=== PATIENT | female | born 1930 | race Caucasian/White ===

== ENCOUNTER 2016-05-31 16:09 | Inpatient (IN) | payer OTHER, MEDICARE ==
[~2016-05-31] VITALS: Ht 167.6 cm; Wt 72.3 kg
[2016-05-31] VITALS (7 sets, daily range): BP systolic 115–163; BP diastolic 60–95; PULSE 61–74; RESP 16; TEMP 96.9–97.6; O2SAT 96–99
[~2016-05-31 16:09] MED LIST: ASPI81TA82 PO; ATOR20TA42 PO; FURO1TAB93 PO; LEVO50TA48 PO; NITR-29 PO; OMEP40CA2 PO; POTA10SO13 PO; TAZT360C2 PO
[2016-05-31] MEDS ORDERED: MORPHINE SULFATE 4 MG/ML INJ IV PUSH ONE (16:45)
--- NOTE | 2016-05-31 16:49 | PD ---
HPI Chief Complaint: Fall Time Seen by Provider: 16:24 Travel History International Travel<30 days: No Contact w/Intl Traveler<30days: No Traveled to known affect area: No History of Present Illness HPI Patient is an 86-year-old female who presents to emergency room with complaints of left-sided hip pain. Patient reports that she was waiting for her bus to arrive and holding onto the rails when all of a sudden she lost her balance and fell. Patient reports that she fell landing onto her left hip. Denies trauma to head/neck. Denies loc. Reports that she was unable to get up and walk after her fall as bystanders had to assist her. Patient reports that the only anticoagulant that she takes is a baby aspirin. Patient denies any chest pain or shortness of breath. Patient denies abdominal pain. Patient denies pelvic pain. Patient reports only pain to her left hip. PFSH Past Medical History Anemia: Yes Arthritis: Yes Asthma: No Atrial Fibrillation: Yes (H/O? Pt unsure of dx.) Autoimmune Disease: No Anxiety: No Depression: No Heart Rhythm Problems: No Cancer: No Cardiovascular Problems: Yes High Cholesterol: No Chemotherapy: No Chest Pain: No Congestive Heart Failure: No COPD: No Cerebrovascular Accident: Yes (TIA) Diabetes: No Diminished Hearing: No Endocrine: Yes (Hypothyroid ) Gastrointestinal Disorders: Yes (TUMOR REMOVED FROM COLON) GERD: Yes Genitourinary: No Headaches: Yes Hiatal Hernia: Yes Hypertension: Yes Immune Disorder: No Inguinal Hernia: Yes (Pt unsure of dx) Kidney Stones: No Musculoskeletal: Yes (Chronic back pain) Neurologic: No Psychiatric: No Reproductive: No Respiratory: No Immunizations Current: Yes Migraines: No Radiation Therapy: No Renal Failure: No Seizures: No Sickle Cell Disease: No Sleep Apnea: No Thyroid Disease: Yes (Hypothyroid) Ulcer: No ?: Not : 2 Para: 2 Past Surgical History Abdominal Surgery: Yes (Colon resection ) AICD: No Arteriovenous Shunt: No Cardiac Surgery: No Cholecystectomy: Yes Ear Surgery: No Endocrine Surgery: No Eye Surgery: Yes (Cataract removal right eye) Genitourinary Surgery: No Gynecologic Surgery: Yes Hysterectomy: Yes (Partial) Insulin Pump: No Joint Replacement: No Oral Surgery: No Pacemaker: No Thoracic Surgery: No Tonsillectomy: Yes Other Surgery: Yes (TONSILECTOMY) Family History Family History: Negative Social History Alcohol Use: Yes (Rarely) Tobacco Use: No Substance Use: No Allergies-Medications (Allergen,Severity, Reaction): Coded Allergies: Penicillin (Verified Allergy, Severe, Anaphylaxis, 05/31/16) Sulfa (Verified Allergy, Severe, Anaphylaxis, 05/31/16) Reported Meds & Prescriptions Reported Meds & Active Scripts Active Reported Taztia Xt (Diltiazem ER 24 HR) 180 Mg Caper 360 Mg PO DAILY Furosemide 40 Mg Tab 40 Mg PO DAILY K-Tab (Potassium Chloride) 20 Meq Tab 40 Meq PO DAILY Aspirin 81 Mg Tabdr 81 Mg PO DAILY Omeprazole 40 Mg Cap 40 Mg PO DAILY Levothyroxine (Levothyroxine Sodium) 50 Mcg Tab 50 Mcg PO DAILY Review of Systems General / Constitutional: No: Fever Eyes: No: Visual changes HENT: No: Headaches Cardiovascular: No: Chest Pain or Discomfort Respiratory: No: Shortness of Breath Gastrointestinal: No: Abdominal Pain Genitourinary: No: Dysuria Musculoskeletal: Positive: Pain (left sided hip pain) Skin: No Rash Neurologic: No: Weakness Psychiatric: No: Depression Endocrine: No: Polydipsia Hematologic/Lymphatic: No: Easy Bruising Physical Exam Narrative GENERAL: nad, nontoxic SKIN: Warm and dry. HEAD: Atraumatic. Normocephalic. EYES: Pupils equal and round. No scleral icterus. No injection or drainage. ENT: No nasal bleeding or discharge. Mucous membranes pink and moist. NECK: Trachea midline. No JVD. CARDIOVASCULAR: Regular rate and rhythm. No murmur appreciated. RESPIRATORY: No accessory muscle use. Clear to auscultation. Breath sounds equal bilaterally. GASTROINTESTINAL: Abdomen soft, non-tender, nondistended. Hepatic and splenic margins not palpable. MUSCULOSKELETAL: No obvious deformities. No clubbing. No cyanosis. No edema. Patient with pain with ROM to left hip, no obvious fx, no open fx, patient with abrasions to left lateral hip, normal rom to left knee and ankle, RLE: normal exam NEUROLOGICAL: Awake and alert. No obvious cranial nerve deficits. Motor grossly within normal limits. Normal speech. PSYCHIATRIC: Appropriate mood and affect; insight and judgment normal. Data Data Last Documented VS Vital Signs Date Time Temp Pulse Resp B/P Pulse Ox O2 Delivery O2 Flow Rate FiO2 05/31/16 17:55 61 16 155/69 98 05/31/16 16:11 97.6 Orders Complete Blood Count With Diff (05/31/16 16:36) Comprehensive Metabolic Panel (05/31/16 16:36) Prothrombin Time / Inr (Pt) (05/31/16 16:36) Act Partial Throm Time (Ptt) (05/31/16 16:36) Iv Access Insert/Monitor (05/31/16 16:36) Morphine Inj (Morphine Inj) (05/31/16 16:45) Hip, Uni(Ap&Lat) W Ap Pelvis (05/31/16 ) Ondansetron Inj (Zofran Inj) (05/31/16 17:00) Ondansetron Inj (Zofran Inj) (05/31/16 18:00) Electrocardiogram (05/31/16 ) Labs Laboratory Tests Test 05/31/16 16:40 White Blood Count 7.1 TH/MM3 Red Blood Count 4.34 MIL/MM3 Hemoglobin 12.7 GM/DL Hematocrit 37.4 % Mean Corpuscular Volume 86.1 FL Mean Corpuscular Hemoglobin 29.2 PG Mean Corpuscular Hemoglobin 34.0 % Concent Red Cell Distribution Width 13.4 % Platelet Count 255 TH/MM3 Mean Platelet Volume 8.3 FL Neutrophils (%) (Auto) 64.9 % Lymphocytes (%) (Auto) 24.3 % Monocytes (%) (Auto) 8.5 % Eosinophils (%) (Auto) 1.5 % Basophils (%) (Auto) 0.8 % Neutrophils # (Auto) 4.6 TH/MM3 Lymphocytes # (Auto) 1.7 TH/MM3 Monocytes # (Auto) 0.6 TH/MM3 Eosinophils # (Auto) 0.1 TH/MM3 Basophils # (Auto) 0.1 TH/MM3 CBC Comment DIFF FINAL Differential Comment Prothrombin Time 11.4 SEC Prothromb Time International 1.0 RATIO Ratio Activated Partial 25.6 SEC Thromboplast Time Sodium Level 143 MEQ/L Potassium Level 3.4 MEQ/L Chloride Level 105 MEQ/L Carbon Dioxide Level 28.0 MEQ/L Anion Gap 10 MEQ/L Blood Urea Nitrogen 23 MG/DL Creatinine 1.40 MG/DL Estimat Glomerular Filtration 35 ML/MIN Rate Random Glucose 148 MG/DL Calcium Level 8.3 MG/DL Total Bilirubin 0.4 MG/DL Aspartate Amino Transf 22 U/L (AST/SGOT) Alanine Aminotransferase 20 U/L (ALT/SGPT) Alkaline Phosphatase 83 U/L Total Protein 7.7 GM/DL Albumin 3.8 GM/DL MDM Medical Decision Making Medical Screen Exam Complete: Yes Emergency Medical Condition: Yes Interpretation(s) Vital Signs Date Time Temp Pulse Resp B/P Pulse Ox O2 Delivery O2 Flow Rate FiO2 05/31/16 16:11 97.6 66 16 136/95 99 Differential Diagnosis Hip fracture, pelvic fracture Narrative Course Patient is an 86 year-old female who presents to emergency room with complaints of left-sided hip pain. Patient reports that she was standing by a rail when she lost balance and ended up falling onto her left hip. Patient with no trauma to the head or neck. Patient with no loss of consciousness. Patient reports pain with range of motion to left hip. Patient reports concern for possible fracture to left hip. X-ray of hip ordered for evaluation of possible fracture Patient with comminuted intratrochanteric fracture of the left proximal femur, call made to [facility] for admission, call made to ortho to review fx pt will need to be transferred to [facility] for ortho surgery case reviewed with Dr Garcia with ortho, request that patient be kept NPO after midnight Physician Communication Physician Communication case reviewed with dr mejia who accepts pt to service Diagnosis Primary Impression: Intertrochanteric fracture of left hip Qualified Code: S72.142A - Intertrochanteric fracture of left hip, closed, initial encounter Admitting Information Admitting Physician Requests: Admit Eneida Paz DO May 31, 2016 16:49
[2016-05-31] MEDS ORDERED: ONDANSETRON HCL 4 MG/2 ML VIAL IV PUSH ONE ×2 (17:00→18:00)
[2016-05-31 17:01] LABS: AUTOMATED NEUTROPHIL # 4.6 TH/MM3 (1.8-7.7); BASOPHIL # 0.1 TH/MM3 (0-0.2); BASOPHIL % 0.8 % (0.0-2.0); EOSINOPHIL # 0.1 TH/MM3 (0-0.4); EOSINOPHIL % 1.5 % (0.0-4.0); HEMATOCRIT 37.4 % (35.0-46.0); HEMO FLAGS DIFF FINAL; LYMPH % 24.3 % (9.0-44.0); LYMPHOCYTE # 1.7 TH/MM3 (1.0-4.8); MEAN CELL VOLUME 86.1 FL (80.0-100.0); MEAN CORPUSCULAR HEMOGLOBIN 29.2 PG (27.0-34.0); MONO % 8.5 % (0.0-8.0); NEUT % 64.9 % (16.0-70.0); PLATELET COUNT 255 TH/MM3 (150-450); RED BLOOD COUNT 4.34 MIL/MM3 (4.00-5.30); RED CELL DISTRIBUTION WIDTH 13.4 % (11.6-17.2); WHITE BLOOD COUNT 7.1 TH/MM3 (4.0-11.0)
[2016-05-31 17:06] LABS: CHLORIDE 105 MEQ/L (98-107); POTASSIUM 3.4 MEQ/L (3.5-5.1); SODIUM (NA) 143 MEQ/L (136-145)
[2016-05-31 17:10] LABS: ANION GAP 10 MEQ/L (5-15); BLOOD UREA NITROGEN 23 MG/DL (7-18)
[2016-05-31 17:13] LABS: ALT (GPT) 20 U/L (10-53); APTT (PATIENT) 25.6 SEC (24.3-30.1); AST (GOT) 22 U/L (15-37); GLOMERULAR FILTRATION RATE 35 ML/MIN (>89); PROTHROMBIN TIME - PATIENT 11.4 SEC (9.8-11.6)
[2016-05-31 17:15] LABS: TOTAL BILIRUBIN ADULT 0.4 MG/DL (0.2-1.0)
[2016-05-31 17:16] LABS: ALKALINE PHOSPHATASE 83 U/L (45-117)
[2016-05-31] MEDS ORDERED: LEVO50TA4 PO (17:36)
[2016-05-31] MEDS ORDERED: OMEP40CA2 PO (17:36)
[2016-05-31] MEDS ORDERED: ASPI1TAB69 PO (17:37)
[2016-05-31] MEDS ORDERED: POTA1TAB4 PO (17:41)
[2016-05-31] MEDS ORDERED: FURO40TA PO (17:41)
[2016-05-31] MEDS ORDERED: TAZT180C PO (17:42)
--- NOTE | 2016-05-31 18:11 | RADHPO ---
EXAM DATE/TIME: 05/31/2016 17:10 [facility] COMPARISON: No previous studies available for comparison. INDICATIONS : Left hip pain post fall. MEDICAL HISTORY : Hypertension. Hypothyroidism. Osteoarthritis. TIA, AFIB, GERD, Gall bladder disease, Arthritis, S ciatica pain, Anemia SURGICAL HISTORY : Tonsillectomy. Colon resection. Cholecystectomy. Hysterectomy ENCOUNTER: Initial ACUITY: 1 day PAIN SCORE: 9/10 LOCATION: Left pelvis FINDINGS: 4 views of the left hip and pelvis. Comminuted intertrochanteric fracture of the proximal left femur. Small bilateral hip osteophytes. Mild bilateral hip joint narrowing. No evidence of dislocation. CONCLUSION: Comminuted intertrochanteric proximal left femur fracture with 2.5 cm displacement of the lesser troc hanter fragment. Mild osteoarthritic findings of the hips. Lan Lopez MD on May 31, 2016 at 18:08 Board Certified Radiologist. This report was verified electronically.
[2016-05-31] MEDS ORDERED: MAGNESIUM HYDROXIDE SUSP 30 ML CUP PO PRN (19:00)
[2016-05-31] MEDS ORDERED: ACETAMINOPHEN 325 MG TAB PO PRN (19:00)
[2016-05-31] MEDS ORDERED: MORPHINE SULFATE 8 MG/ML INJ IV PUSH PRN (19:00)
[2016-05-31] MEDS ORDERED: NALOXONE HCL 0.4 MG/ML AMP IV PRN (19:00)
[2016-05-31] MEDS ORDERED: ZOLPIDEM TARTRATE 5 MG TAB PO PRN (19:00)
[2016-05-31] MEDS ORDERED: SODIUM CHLORIDE 0.9% FLUSH 5 ML FLUSH IVF PRN (19:00)
[2016-05-31] MEDS ORDERED: diphenhydrAMINE HCL 25 MG CAP PO PRN (19:00)
[2016-05-31] MEDS ORDERED: SODIUM CHLORIDE 0.9% FLUSH 5 ML FLUSH IVF SCH (21:00)
[2016-05-31] MEDS ORDERED: DOCUSATE SODIUM 100 MG CAP PO SCH (21:00)
[2016-05-31] MEDS ORDERED: LACTATED RINGER'S 1000 ML IV SCH (23:00)
[2016-05-31] MEDS ORDERED: SODIUM CHLORID 0.9% 500 ML IV SCH (23:00)
[2016-05-31] MEDS: ONDANSETRON HCL 4 MG/2 ML VIAL IVP PRN (23:28)
[2016-06-01 04:00] VITALS: BP 154/76; PULSE 82; RESP 16; TEMP 95.9; O2SAT 95
[2016-06-01] MEDS: LEVOTHYROXINE SODIUM 50 MCG TAB PO SCH (04:03)
[2016-06-01 07:16] LABS: AUTOMATED NEUTROPHIL # 4.8 TH/MM3 (1.8-7.7); BASOPHIL % 0.5 % (0.0-2.0); EOSINOPHIL % 0.4 % (0.0-4.0); HEMATOCRIT 31.3 % (35.0-46.0); HEMO FLAGS DIFF FINAL; LYMPH % 15.1 % (9.0-44.0); MEAN CELL VOLUME 85.3 FL (80.0-100.0); MEAN CORPUSCULAR HEMOGLOBIN 28.9 PG (27.0-34.0); MEAN CORPUSCULAR HGB CONC 33.9 % (32.0-36.0); MONO % 10.5 % (0.0-8.0); NEUT % 73.5 % (16.0-70.0); PLATELET COUNT 203 TH/MM3 (150-450); RED BLOOD COUNT 3.66 MIL/MM3 (4.00-5.30); RED CELL DISTRIBUTION WIDTH 13.9 % (11.6-17.2); WHITE BLOOD COUNT 6.6 TH/MM3 (4.0-11.0)
[2016-06-01 07:19] LABS: BICARBONATE 31.1 MEQ/L (21.0-32.0); POTASSIUM 3.6 MEQ/L (3.5-5.1)
[2016-06-01 07:55] VITALS: BP 160/74; PULSE 98; RESP 18; TEMP 98.7; O2SAT 94
[2016-06-01] MEDS: PANTOPRAZOLE SOD 40 MG DELAYED RELEASE TAB PO SCH (09:00)
[2016-06-01] MEDS ORDERED: FUROSEMIDE 40 MG TAB PO SCH (09:00)
--- NOTE | 2016-06-01 09:04 | MB ---
cc: HENRIQUE MAY DATE OF CONSULTATION: 06/01/2016 REASON FOR CONSULTATION: Patient is left hip fracture. HISTORY The patient is an 86-year-old female who does have a history of a CVA a couple years ago without significant residual effects, who says that she was in [facility] and then was waiting in an area where she was holding on to some rails, it sounds like she was losing balance on one the bags that she was holding and then fell landing onto the left hip. The patient had immediate pain was unable to ambulate the pain was severe. She did not describe significant pain other body areas. She was unable to walk. She was brought to [facility] where she was found to have a displaced intertrochanteric fracture. MEDICAL HISTORY 1. Positive for knee arthritis 2. atrial fibrillation 3. CVA 4. Hypothyroidism 5. gastroesophageal reflux disease 6. Hypertension 7. chronic back pain. 8. Thyroid. PAST SURGICAL HISTORY 1. Colon resection 2. Cholecystectomy 3. cataract surgery 4. Hysterectomy 5. tonsillectomy. FAMILY HISTORY Noncontributory. SOCIAL HISTORY The patient rarely drinks alcohol. Does not smoke. ALLERGIES PENICILLIN SULFA MEDICATIONS See the chart, she takes; Aspirin as an anticoagulant. PHYSICAL EXAMINATION: VITAL SIGNS: shows temperature 97.5, pulse of 73, respirations 16, blood pressure 115/67. IN GENERAL: She is awake, alert and oriented x3. She has normal affect insight and judgment. HEAD, EYES, EARS, NOSE, AND THROAT: Head is atraumatic. Extraocular muscles are intact. NECK: Neck is supple and nontender. Oropharynx is moist. HEART: Regular rate and rhythm. LUNGS: Clear excision bilaterally. ABDOMEN: The abdomen is soft, nontender, nondistended. EXTREMITIES: Examination of the skin of the left hip shows she has mild swelling. No wounds are noted. The left leg is held rotated and shortened. She moves the toes actively she has brisk refill about the toes right knee ankle have no tenderness upper extremities have good range of motion actively of the wrists, elbows and shoulders history, is neurovascularly intact in both upper extremities. LABORATORY FINDINGS: Studies shows white cell count of 6.6, hematocrit is 31.3, platelets of 203, coagulation studies show INR 1.0. Chemistries show creatinine yesterday was 1.4, today it is 1.0. RADIOLOGIC: X-ray reported images reviewed of the left hip shows a comminuted intertrochanteric fracture with displacement including displacement of the lesser trochanter significant angulation noted. IMPRESSION Left hip severe comminuted intertrochanteric hip fracture. DECISION MAKING: This is a very complex situation with this patient, nonoperative management will likely cause severe disability to the left lower extremity potentially leaving the patient unable to ambulate for the rest of her life. She will have chronic shortening with deformity about the hip. Therefore I have recommended urgent surgical management for repairing the hip. This would consist of an open reduction, internal fixation likely with a trochanteric nail. There are significant risks associated with surgery, especially given associated comorbidities. The risks include injury also bleeding, infection failure of the hardware, need for operation, continued pain loss range of motion associated joints, DVT, pulmonary embolus, pneumonia, stroke and . The patient does want to move forward with surgical management as outlined. All questions answered. Henrique May MD /sue /7:56 AM /8:53 AM
[2016-06-01] MEDS ORDERED: FAMOTIDINE 20 MG/2 ML VIAL ONE (10:29)
[2016-06-01] MEDS ORDERED: ACETAMINOPHEN 1000 MG/100 ML VIAL IV ONE (10:29)
[2016-06-01] MEDS ORDERED: CLINDAMYCIN PHOS 600 MG/4 ML VIAL ONE (10:44)
[2016-06-01] MEDS ORDERED: VANCOMYCIN HCL 1000 MG VIAL ONE (10:44)
[2016-06-01] MEDS ORDERED: TRANEXAMIC ACID INJ 1,000 MG/10 ML AMP ONE (10:45)
[2016-06-01] MEDS ORDERED: PHENYLEPH/NS 1000 MCG/10 ML SYR IV ONE (10:59)
[2016-06-01] MEDS ORDERED: PROPOFOL 200 MG/20 ML AMP IV ONE (10:59)
[2016-06-01] MEDS ORDERED: SODIUM CHLOR 0.9% 250 ML INJ 750 ML IV ONE (10:59)
[2016-06-01] MEDS ORDERED: GENTAMICIN SULFATE 80 MG/2 ML VIAL ONE (11:55)
[2016-06-01] MEDS ORDERED: ZOLPIDEM TARTRATE 5 MG TAB PO PRN (12:15)
[2016-06-01] MEDS ORDERED: diphenhydrAMINE HCL 50 MG/ML VIAL IV PRN (12:15)
[2016-06-01] MEDS ORDERED: SODIUM CHLORIDE 0.9% FLUSH 5 ML FLUSH IVF PRN (12:15)
[2016-06-01] MEDS ORDERED: Post-op Orders (for Pharmacy) MISC XX ONE (12:15)
[2016-06-01] MEDS ORDERED: BISACODYL 10 MG SUPP PR PRN (12:15)
[2016-06-01] MEDS ORDERED: ALUMINUM/MAGNESIUM/SIMETH 30 ML CUP PO PRN (12:15)
[2016-06-01] MEDS ORDERED: NALOXONE HCL 0.4 MG/ML AMP IV PRN (12:15)
[2016-06-01] MEDS ORDERED: MORPHINE SULFATE 4 MG/ML INJ IV PUSH PRN (12:15)
--- NOTE | 2016-06-01 12:17 | PD.OP ---
cc: Jason Lind MD Operative Report Date of Surgery: Jun 01, 2016 Preoperative Diagnosis: Left hip comminuted intertrochanteric fracture Postoperative Diagnosis: Same Procedure: Left hip treatment of intertrochanteric fracture with intramedullary nail Anesthesia: Gen. Surgeon: Jason Lind Senior Business Broker(s): LOREN Sánchez The surgical procedure was assisted by my Advanced Registered Nurse Practitioner. My SCIENTIFIC SYSTEMS ANALYST presence was necessary throughout this case for the manipulation and positioning of the surgical extremity. My SCIENTIFIC SYSTEMS ANALYST was assisting me throughout the duration of this procedure. The skill set of an Advance Registered Nurse Practitioner was medically necessary to complete this procedure. During the surgical case, the surgical technology instructor was working at the back table and the Advance Registered Nurse Practitioner was directly assisting me. Operation and Findings: Estimated blood loss: 150 cc Implants: Synthes short trochanteric nail, size: 10, 130, intermediate length The patient received intravenous vancomycin and clindamycin. After the appropriate anesthesia was administered, and the patient was transferred to the fracture table. The neck and intertrochanteric region of the fracture was anatomically reduced under fluoroscopic imaging. There was still some displacement of the lesser trochanter. The hip was prepped and draped in usual sterile fashion. We made incision just proximal to the tip of the greater trochanter. We dissected down through the deep fascia. We used a threaded guidewire at the tip of the greater trochanter which was placed down to the metaphyseal region on both the AP and lateral views. We reamed proximally. Using fluoroscopic analysis we templated the appropriate size for the intermediate nail. This nail was then placed into position under fluoroscopic guidance. We made incision laterally based on the position of the associated jig. We then placed a threaded guidewire into the center, center of the femoral head. The appropriate length for the helical blade was measured. We drilled laterally and then step reamed the femoral neck and femoral head region. The helical blade was placed into position. We then tightened the proximal set screw, which was followed by releasing one turn off of the screw to allow for compression. Traction was released from the leg and then manual compression was performed. The nail was secured distally with a single screw off of the jig using fluoroscopic guidance. We took final fluoroscopic imaging which revealed that the fracture was in very good position. The hardware was in good position as well. The wounds were thoroughly irrigated and then closed with a 0 Vicryl followed by 2-0 Vicryl and josé luis. The postoperative plan is to start toe-touch weightbearing. Additionally, we will initiate postoperative antibiotics for 24 hours along with DVT prophylaxis consisting of early mobilization, SCDs, compression stockings, and Lovenox followed by aspirin. Jason Lind MD Jun 01, 2016 12:17
[2016-06-01] MEDS ORDERED: ENOX40P SQ (12:19)
[2016-06-01] MEDS ORDERED: ASPI325T PO (12:19)
[2016-06-01] MEDS ORDERED: NORC5TAB PO (12:19)
[2016-06-01] MEDS ORDERED: DO NOT ADM ANY ANTICOAGULANT DRUGS XX PRN (12:32)
[2016-06-01] MEDS ORDERED: MORPHINE SULFATE 4 MG/ML INJ ONE (12:37)
[2016-06-01] MEDS ORDERED: *ONDANSETRON 4 MG VIAL PERIprocedural Use ONLY ONE (12:44)
[2016-06-01] MEDS ORDERED: *PROMETHAZINE 25 MG/ML VIAL PERIprocedural use ONLY ONE (12:44)
[2016-06-01] MEDS ORDERED: SODIUM CHLOR 0.9% 1000 ML INJ 1,000 ML IV SCH (13:00)
--- NOTE | 2016-06-01 13:10 | RADRPT ---
EXAM DATE/TIME: 06/01/2016 11:40 [facility] COMPARISON: No previous studies available for comparison. INDICATIONS : Open reduction in operating room. MEDICAL HISTORY : None. SURGICAL HISTORY : None. ENCOUNTER: Subsequent ACUITY: 2 days PAIN SCORE: Non-responsive. LOCATION: Left lateral CONCLUSION: Fluoroscopic image during placement of a compression pin/nail in left. Derrick Tabor MD on June 01, 2016 at 13:08 Board Certified Radiologist. This report was verified electronically.
[2016-06-01] MEDS: ACETAMINOPHEN/HYDROcodone 325 MG/5 MG TAB PO PRN (13:38)
[2016-06-01] MEDS: DILTIAZEM-CD 180 MG CAP ER PO SCH (13:50)
[2016-06-01] MEDS: POTASSIUM CHLORIDE 20 MEQ CONTROLLED RELEASE TAB PO SCH (13:50)
[2016-06-01] MEDS ORDERED: TRANEXAMIC ACID IV SCH (14:00)
[2016-06-01] MEDS ORDERED: SODIUM CHLORIDE 0.9% IV SCH (14:00)
[2016-06-01] MEDS: SENNOSIDES 8.6 MG TAB PO SCH (15:30)
[2016-06-01] MEDS ORDERED: ENALAPRILAT 1.25 MG/ML VIAL IV PUSH PRN (15:30)
--- NOTE | 2016-06-01 15:55 | HHI.HP ---
[facility] Service [facility] Primary Care Physician Alejandro Wooten MD Admission Diagnosis left hip fracture Diagnoses: Travel History International Travel<30 Days: No Contact w/Intl Traveler <30 Da: No Traveled to Known Affected Are: No History of Present Illness The patient is an 86-year-old female with a past medical history of hypertension and diverticulitis who is presenting to the hospital after having a fall. She was waiting for a bus and she tried to hold the rail for balance but she lost balance and fell on the left side of her body. She said she had significant pain in her left hip after the fall. She was unable to walk following the injury. She said she had been ambulating with a walker for most of the day as she was walking long distances. The patient was found to have a left intertrochanteric fracture and was taken for surgery on 06/01/16. The patient tolerated the procedure well. She was a little confused following the surgery and complained of pain in her left hip. She said she has not eaten anything yet. She does endorse some constipation recently. Review of Systems ROS Limitations: Clinical Condition, Poor Historian Cardiovascular: COMPLAINS OF: Lower Extremity Edema Gastrointestinal: COMPLAINS OF: Constipation Musculoskeletal: COMPLAINS OF: Joint pain, Muscle aches, Stiffness, Joint Swelling Neurologic: COMPLAINS OF: Abnormal gait, Poor Balance Psychiatric: COMPLAINS OF: Confusion Past Family Social History Past Medical History Hypertension GERD Diverticulitis Hypothyroidism Past Surgical History Partial hysterectomy Cholecystectomy Allergies: Coded Allergies: Penicillin (Verified Allergy, Severe, Anaphylaxis, 05/31/16) Sulfa (Verified Allergy, Severe, Anaphylaxis, 05/31/16) Family History The patient denies pertinent family history. Social History She does not smoke. She says she rarely has a glass of wine. Physical Exam Vital Signs Vital Signs Date Time Temp Pulse Resp B/P Pulse Ox O2 Delivery O2 Flow Rate FiO2 06/01/16 13:00 87 16 158/82 99 Nasal Cannula 2 06/01/16 12:45 97 16 169/81 97 Nasal Cannula 2 06/01/16 12:30 98.4 97 16 172/91 100 Nasal Cannula 2 06/01/16 07:55 98.7 98 18 160/74 94 06/01/16 04:00 95.9 82 16 154/76 95 05/31/16 22:00 97.5 73 16 115/67 99 Room Air 05/31/16 21:59 96.9 74 16 163/80 96 05/31/16 21:00 74 16 127/60 99 Room Air 05/31/16 20:53 96 05/31/16 19:00 97.3 64 16 146/69 96 Room Air 05/31/16 19:00 16 96 Room Air 05/31/16 17:55 61 16 155/69 98 05/31/16 17:00 14 05/31/16 16:11 97.6 66 16 136/95 99 Physical Exam GENERAL: Resting comfortably in bed. SKIN: Warm and dry. HEAD: Atraumatic. Normocephalic. EYES: Pupils equal and round. No scleral icterus. No injection or drainage. ENT: No nasal bleeding or discharge. Mucous membranes pink and moist. NECK: Trachea midline. No JVD. CARDIOVASCULAR: Tachycardic. No murmur appreciated. RESPIRATORY: No accessory muscle use. Clear to auscultation. Breath sounds equal bilaterally. GASTROINTESTINAL: Abdomen soft, non-tender, nondistended. Hepatic and splenic margins not palpable. MUSCULOSKELETAL: No obvious deformities. No clubbing. No cyanosis. Edema around the left hip. Patient with pain with ROM to left hip. Bandage in place. NEUROLOGICAL: Awake and alert. No obvious cranial nerve deficits. Motor grossly within normal limits. Normal speech. PSYCHIATRIC: Appropriate mood and affect; insight and judgment normal. Laboratory Laboratory Tests Test 05/31/16 06/01/16 16:40 06:23 White Blood Count 7.1 6.6 Red Blood Count 4.34 3.66 Hemoglobin 12.7 10.6 Hematocrit 37.4 31.3 Mean Corpuscular Volume 86.1 85.3 Mean Corpuscular Hemoglobin 29.2 28.9 Mean Corpuscular Hemoglobin 34.0 33.9 Concent Red Cell Distribution Width 13.4 13.9 Platelet Count 255 203 Mean Platelet Volume 8.3 8.5 Neutrophils (%) (Auto) 64.9 73.5 Lymphocytes (%) (Auto) 24.3 15.1 Monocytes (%) (Auto) 8.5 10.5 Eosinophils (%) (Auto) 1.5 0.4 Basophils (%) (Auto) 0.8 0.5 Neutrophils # (Auto) 4.6 4.8 Lymphocytes # (Auto) 1.7 1.0 Monocytes # (Auto) 0.6 0.7 Eosinophils # (Auto) 0.1 0.0 Basophils # (Auto) 0.1 0.0 CBC Comment DIFF FINAL DIFF FINAL Differential Comment Prothrombin Time 11.4 Prothromb Time International 1.0 Ratio Activated Partial 25.6 Thromboplast Time Sodium Level 143 141 Potassium Level 3.4 3.6 Chloride Level 105 103 Carbon Dioxide Level 28.0 31.1 Anion Gap 10 7 Blood Urea Nitrogen 23 22 Creatinine 1.40 1.00 Estimat Glomerular Filtration 35 52 Rate Random Glucose 148 117 Calcium Level 8.3 8.4 Total Bilirubin 0.4 Aspartate Amino Transf 22 (AST/SGOT) Alanine Aminotransferase 20 (ALT/SGPT) Alkaline Phosphatase 83 Total Protein 7.7 Albumin 3.8 Result Diagram: 06/01/16 0623 06/01/16 0623 Imaging Last Impressions Hip X-Ray 06/01/16 0000 Signed Impressions: Service Date/Time: Wednesday, June 01, 2016 11:40 - CONCLUSION: Fluoroscopic image during placement of a compression pin/nail in left. Derrick Tabor MD Hip and Pelvis X-Ray 05/31/16 0000 Signed Impressions: Service Date/Time: Tuesday, May 31, 2016 17:10 - CONCLUSION: Comminuted intertrochanteric proximal left femur fracture with 2.5 cm displacement of the lesser trochanter fragment. Mild osteoarthritic findings of the hips. Lan Lopez MD Assessment and Plan Assessment and Plan Femur fracture The patient lost her balance and fell on her left hip. Imaging revealed a comminuted intertrochanteric proximal left femur fracture with 2.5 cm displacement of the lesser trochanter fragment. Status post surgical repair 08/12. - Pain control with a bowel regimen. - Wound care, weightbearing and anticoagulation per orthopedic surgery. - Incentive spirometry. - Physical therapy. - ADAT, antiemetics as needed. Anemia Hemoglobin is slightly lower than baseline. - Continue to monitor CBC. Hypertension Exacerbated by pain. - Continue pain control. - Continue home regimen. - Vasotec as needed. Acute kidney injury The patient is on Lasix as an outpatient. Likely prerenal. Improved with IV fluids. - Hold Lasix. - Continue IV fluids. - Trend BMP and avoid nephrotoxic agents. PPx: Per orthopedic surgery. Code Status Full. Discussed Condition With Patient. Physician Certification 2 Midnight Certification Type: Admission for Inpatient Services Order for Inpatient Services The services are ordered in accordance with Medicare regulations or non- Medicare payer requirements, as applicable. In the case of services not specified as inpatient-only, they are appropriately provided as inpatient services in accordance with the 2-midnight benchmark. Estimated LOS (days): 2 days is the estimated time the patient will need to remain in the hospital, assuming treatment plan goals are met and no additional complications. Post-Hospital Plan: SNF Ebenezer Mae DO Jun 01, 2016 15:55
[2016-06-01 16:35] VITALS: BP 136/78; PULSE 100; RESP 11; TEMP 97.1; O2SAT 98
[2016-06-01] MEDS: CLINDAMYCIN INJ 900 MG in SODIUM CHLORIDE 0.9% INJ 100 ML IV SCH (17:35)
[2016-06-01 20:35] VITALS: BP 152/70; PULSE 75; RESP 18; TEMP 98.8; O2SAT 99
[2016-06-01] MEDS: SODIUM CHLORIDE 0.9% FLUSH 5 ML FLUSH IVF SCH (21:00)
[2016-06-02] VITALS (7 sets, daily range): BP systolic 104–139; BP diastolic 55–78; PULSE 73–112; RESP 14–19; TEMP 97–99.2; O2SAT 97–100
[2016-06-02] MEDS: ACETAMINOPHEN/HYDROcodone 325 MG/5 MG TAB PO PRN ×4 (00:18→20:36)
[2016-06-02] MEDS: CLINDAMYCIN INJ 900 MG in SODIUM CHLORIDE 0.9% INJ 100 ML IV SCH ×2 (01:24→10:03)
[2016-06-02] MEDS: LEVOTHYROXINE SODIUM 50 MCG TAB PO SCH (06:20)
--- NOTE | 2016-06-02 07:49 | PD.ORT.PN ---
Subjective Post Op Day #: 1 Subjective Remarks Patient is resting comfortably in bed with mild to moderate left hip. Objective Vitals Vital Signs Date Time Temp Pulse Resp B/P Pulse Ox O2 Delivery O2 Flow Rate FiO2 06/02/16 04:15 97.8 80 19 104/59 98 06/02/16 00:15 99.2 112 14 130/78 97 06/01/16 20:35 98.8 75 18 152/70 99 06/01/16 20:31 Nasal Cannula 2.50 06/01/16 16:35 97.1 100 11 136/78 98 06/01/16 13:00 87 16 158/82 99 Nasal Cannula 2 06/01/16 12:45 97 16 169/81 97 Nasal Cannula 2 06/01/16 12:30 98.4 97 16 172/91 100 Nasal Cannula 2 06/01/16 07:55 98.7 98 18 160/74 94 I/O 06/01/16 06/01/16 06/01/16 06/02/16 06/02/16 06/02/16 07:00 15:00 23:00 07:00 15:00 23:00 Intake Total 161 ml 1840 ml 710 ml 690 ml Output Total 375 ml 575 ml 600 ml 370 ml Balance -214 ml 1265 ml 110 ml 320 ml Intake Oral 0 ml 240 ml 240 ml 240 ml IV Total 161 ml 100 ml 470 ml 450 ml Other 1500 ml Output Urine Total 375 ml 125 ml 600 ml 370 ml Estimated Blood Loss 50 ml Other 400 ml # Voids 0 # Bowel Movements 0 0 0 Result Diagram: 06/01/16 0623 06/01/16 0623 Procedures Left hip treatment of intertrochanteric fracture with intramedullary nail Objective Remarks Dressings are C/D/I. Mild swelling to the LLE. EHL/TA/G intact. 2+ pedal pulse. Calf is soft and nontender. + SILT. Assessment & Plan Ortho Post Op Day #: 1 Problem List: Assessment and Plan POD #1: Left hip treatment of intertrochanteric fracture with intramedullary nail 1. TTWB LLE 2. Lovenox for DVT prophylaxis 3. Ice to the left hip PRN 4. Plan is for discharge to SNF on Friday if medically cleared and stable. Cullen Corcoran Jun 02, 2016 07:49
[2016-06-02 08:06] LABS: HEMATOCRIT 23.1 % (35.0-46.0); MEAN CORPUSCULAR HEMOGLOBIN 29.8 PG (27.0-34.0); MEAN CORPUSCULAR HGB CONC 34.3 % (32.0-36.0); PLATELET COUNT 165 TH/MM3 (150-450); RED BLOOD COUNT 2.66 MIL/MM3 (4.00-5.30); RED CELL DISTRIBUTION WIDTH 14.3 % (11.6-17.2); REVIEW FLAG FINAL; WHITE BLOOD COUNT 9.3 TH/MM3 (4.0-11.0)
[2016-06-02] MEDS: PANTOPRAZOLE SOD 40 MG DELAYED RELEASE TAB PO SCH (08:22)
[2016-06-02] MEDS: SENNOSIDES 8.6 MG TAB PO SCH (08:23)
[2016-06-02] MEDS: DILTIAZEM-CD 180 MG CAP ER PO SCH (08:23)
[2016-06-02] MEDS: POTASSIUM CHLORIDE 20 MEQ CONTROLLED RELEASE TAB PO SCH (08:23)
[2016-06-02 08:31] LABS: BICARBONATE 25.3 MEQ/L (21.0-32.0); POTASSIUM 3.7 MEQ/L (3.5-5.1)
--- NOTE | 2016-06-02 08:51 | HHI.PR ---
Subjective Remarks The patient was feeling well this morning. She was not nauseous. She said her pain was controlled. She was using the incentive spirometer. She said she ordered breakfast. She had no acute complaints at this time. Objective Vitals Vital Signs Date Time Temp Pulse Resp B/P Pulse Ox O2 Delivery O2 Flow Rate FiO2 06/02/16 07:20 18 06/02/16 04:15 97.8 80 19 104/59 98 06/02/16 00:15 99.2 112 14 130/78 97 06/01/16 20:35 98.8 75 18 152/70 99 06/01/16 20:31 Nasal Cannula 2.50 06/01/16 16:35 97.1 100 11 136/78 98 06/01/16 13:00 87 16 158/82 99 Nasal Cannula 2 06/01/16 12:45 97 16 169/81 97 Nasal Cannula 2 06/01/16 12:30 98.4 97 16 172/91 100 Nasal Cannula 2 I/O 06/01/16 06/01/16 06/01/16 06/02/16 06/02/16 06/02/16 07:00 15:00 23:00 07:00 15:00 23:00 Intake Total 161 ml 1840 ml 710 ml 690 ml Output Total 375 ml 575 ml 600 ml 370 ml Balance -214 ml 1265 ml 110 ml 320 ml Intake Oral 0 ml 240 ml 240 ml 240 ml IV Total 161 ml 100 ml 470 ml 450 ml Other 1500 ml Output Urine Total 375 ml 125 ml 600 ml 370 ml Estimated Blood Loss 50 ml Other 400 ml # Voids 0 # Bowel Movements 0 0 0 Result Diagram: 06/02/16 0706/02/16 07 Imaging Last Impressions Hip X-Ray 06/01/16 0000 Signed Impressions: Service Date/Time: Wednesday, June 01, 2016 11:40 - CONCLUSION: Fluoroscopic image during placement of a compression pin/nail in left. Derrick Tabor MD Hip and Pelvis X-Ray 05/31/16 0000 Signed Impressions: Service Date/Time: Tuesday, May 31, 2016 17:10 - CONCLUSION: Comminuted intertrochanteric proximal left femur fracture with 2.5 cm displacement of the lesser trochanter fragment. Mild osteoarthritic findings of the hips. Lan Lopez MD Objective Remarks GENERAL: Resting comfortably in bed. SKIN: Warm and dry, pale. HEAD: Atraumatic. Normocephalic. EYES: Pupils equal and round. No scleral icterus. No injection or drainage. ENT: No nasal bleeding or discharge. Mucous membranes pink and moist. NECK: Trachea midline. No JVD. CARDIOVASCULAR: Regular rate and rhythm. No murmur appreciated. RESPIRATORY: No accessory muscle use. Clear to auscultation. Breath sounds equal bilaterally. GASTROINTESTINAL: Abdomen soft, non-tender, nondistended. Hepatic and splenic margins not palpable. MUSCULOSKELETAL: No obvious deformities. No clubbing. No cyanosis. Edema around the left hip. Patient with pain with ROM to left hip. Bandage in place. NEUROLOGICAL: Awake and alert. No obvious cranial nerve deficits. Motor grossly within normal limits. Normal speech. PSYCHIATRIC: Appropriate mood and affect; insight and judgment normal. Procedures Left hip treatment of intertrochanteric fracture with intramedullary nail Medications and IVs Current Medications Medications (Trade) Dose Ordered Sig/Maddison Route Start Time Stop Time Status Last Admin ([place] 5-325 Mg) 1 tab Q4H PRN PO 05/31/16 19:00 06/01/16 13:38 ([place] 5-325 Mg) 2 tab Q4H PRN PO 05/31/16 19:00 06/02/16 06:20 (Zofran Inj) 4 mg Q6H PRN IVP 05/31/16 19:00 05/31/16 23:28 (Tylenol) 650 mg Q4H PRN PO 05/31/16 19:00 (Benadryl) 25 mg Q4H PRN PO 05/31/16 19:00 (Cardizem Cd) 360 mg DAILY PO 06/01/16 09:00 06/02/16 08:23 (Lasix) 40 mg DAILY PO 06/01/16 09:00 Hold 06/01/16 13:49 (Synthroid) 50 mcg DAILY@06 PO 06/01/16 06:00 06/02/16 06:20 (Protonix) 40 mg DAILY PO 06/01/16 09:00 06/02/16 08:22 (KCl) 40 meq DAILY PO 06/01/16 09:00 06/02/16 08:23 (NS Flush) 2 ml UNSCH PRN IVF 06/01/16 12:15 IV Flush 2 ml 2 ml BID IVF 06/01/16 21:00 (Cleocin Inj/NS Inj) 106 ml @ 212 mls/hr Q8H IV 06/01/16 18:00 06/02/16 10:29 06/02/16 01:24 (Lovenox Inj) 40 mg Q24H SQ 06/02/16 11:30 06/11/16 11:31 (Theragran M Tab) 1 tab BID PO 06/02/16 21:00 08/01/16 20:59 (Colace) 100 mg BID PO 06/02/16 21:00 (Mag-Al Plus Susp Liq) 30 ml Q6H PRN PO 06/01/16 12:15 (Ambien) 5 mg HS PRN PO 06/01/16 12:15 (Dulcolax Supp) 10 mg DAILY PRN [place] 06/01/16 12:15 (Milk Of Magnesia Liq) 30 ml DAILY PRN PO 06/01/16 12:15 (Narcan Inj) 0.4 mg UNSCH PRN IV 06/01/16 12:15 (Benadryl Inj) 25 mg Q6H PRN IV 06/01/16 12:15 (Morphine Inj) 2 mg Q3H PRN IV PUSH 06/01/16 12:15 Miscellaneous Information ALL NURSING DEPARTME... UNSCH PRN XX 06/01/16 12:32 06/02/16 12:31 (Senokot) 17.2 mg DAILY PO 06/01/16 15:30 06/02/16 08:23 (Vasotec Inj) 1.25 mg Q6H PRN IV PUSH 06/01/16 15:30 A/P Assessment and Plan Femur fracture The patient lost her balance and fell on her left hip. Imaging revealed a comminuted intertrochanteric proximal left femur fracture with 2.5 cm displacement of the lesser trochanter fragment. Status post surgical repair with intertrochanteric nail on 06/01/16. - Pain control with a bowel regimen. - Wound care, weightbearing and anticoagulation per orthopedic surgery. - Incentive spirometry. - Physical therapy. - ADAT, antiemetics as needed. Anemia Hemoglobin has decreased following surgery. - Continue to monitor CBC and transfuse as needed. - Hemoccult requested. Hypertension Exacerbated by pain. Improved 06/02. - Continue pain control. - Continue home regimen. - Vasotec as needed. Acute kidney injury The patient is on Lasix as an outpatient. Likely prerenal. Resolved with IV fluids. - hold Lasix. - d/c IV fluids. - Trend BMP as needed and avoid nephrotoxic agents. PPx: Per orthopedic surgery. Discharge Planning Possibly SNF on Friday. Ebenezer Mae DO Jun 02, 2016 08:51
[2016-06-02] MEDS: SODIUM CHLORIDE 0.9% FLUSH 5 ML FLUSH IVF SCH (09:00)
[2016-06-02] MEDS: POLYETHYLENE GLYCOL 17 GM PKG PO SCH (10:03)
[2016-06-02] MEDS: ONDANSETRON HCL 4 MG/2 ML VIAL IVP PRN (10:58)
[2016-06-02] MEDS: ENOXAPARIN SODIUM 40 MG/0.4 ML SYRINGE SQ SCH (11:58)
--- NOTE | 2016-06-02 14:10 | EKG ---
Date Performed: 05/31/2016 Time Performed: 18:48:18 PTAGE: 86 years EKG: Sinus rhythm with 1st degree A-V block Prolonged QT interval Leftward axis Poor R wave progression - probable nor mal variant Anterolateral T wave changes are nonspecific When compared to previous tracing, prevoious ly noted atrial Fibrillation is no longer present. Abnormal ECG PREVIOUS TRACING : 10/09/2015 07.56 DOCTOR: Honey Morrison Interpretating Date/Time 06/02/2016 14:10:01
[2016-06-02] MEDS ORDERED: SODIUM CHLOR 0.45% 1000 ML INJ 1,000 ML IV SCH (15:30)
[2016-06-02] MEDS: MAGNESIUM HYDROXIDE SUSP 30 ML CUP PO PRN (20:35)
[2016-06-02] MEDS: DOCUSATE SODIUM 100 MG CAP PO SCH (20:36)
[2016-06-02] MEDS: MULTIVITAMINS/MINERALS THERAPEUTIC TAB PO SCH (20:36)
[2016-06-03 00:25] VITALS: BP 127/62; PULSE 75; RESP 19; TEMP 98.3; O2SAT 97
[2016-06-03 04:40] LABS: MEAN CELL VOLUME 86.5 FL (80.0-100.0); MEAN CORPUSCULAR HGB CONC 34.7 % (32.0-36.0); PLATELET COUNT 153 TH/MM3 (150-450); RED BLOOD COUNT 2.54 MIL/MM3 (4.00-5.30); RED CELL DISTRIBUTION WIDTH 14.1 % (11.6-17.2); REVIEW FLAG FINAL; WHITE BLOOD COUNT 6.6 TH/MM3 (4.0-11.0)
[2016-06-03] MEDS: LEVOTHYROXINE SODIUM 50 MCG TAB PO SCH (05:14)
[2016-06-03] MEDS: ACETAMINOPHEN/HYDROcodone 325 MG/5 MG TAB PO PRN ×2 (05:14→22:50)
[2016-06-03 08:00] VITALS: BP 128/60; PULSE 78; RESP 18; TEMP 97.1; O2SAT 99
[2016-06-03] MEDS: SODIUM CHLORIDE 0.9% FLUSH 5 ML FLUSH IVF SCH ×2 (09:00→19:58)
[2016-06-03] MEDS: DILTIAZEM-CD 180 MG CAP ER PO SCH (09:40)
[2016-06-03] MEDS: POLYETHYLENE GLYCOL 17 GM PKG PO SCH (09:41)
[2016-06-03] MEDS: PANTOPRAZOLE SOD 40 MG DELAYED RELEASE TAB PO SCH (09:41)
[2016-06-03] MEDS: SENNOSIDES 8.6 MG TAB PO SCH (09:41)
[2016-06-03] MEDS: POTASSIUM CHLORIDE 20 MEQ CONTROLLED RELEASE TAB PO SCH (09:41)
[2016-06-03] MEDS: MULTIVITAMINS/MINERALS THERAPEUTIC TAB PO SCH ×2 (09:41→19:57)
[2016-06-03] MEDS: DOCUSATE SODIUM 100 MG CAP PO SCH ×2 (09:42→19:57)
[2016-06-03] MEDS: ONDANSETRON HCL 4 MG/2 ML VIAL IVP PRN (10:00)
--- NOTE | 2016-06-03 10:57 | HHI.PR ---
Subjective Remarks Follow up femur fracture, anemia. The patient states that she had nausea this morning, but that has improved. She states that she does not feel well overall today. She feels very weak and tired. Denies chest pain or dyspnea. Denies lightheadedness or dizziness. She feels that she has a urinary tract infection. She states that she gets them frequently. She has increased urinary frequency as well as dysuria. Objective Vitals Vital Signs Date Time Temp Pulse Resp B/P Pulse Ox O2 Delivery O2 Flow Rate FiO2 06/03/16 08:00 97.1 78 18 128/60 99 06/03/16 00:25 98.3 75 19 127/62 97 06/02/16 21:31 Nasal Cannula 2.00 06/02/16 20:30 97.9 79 18 139/68 100 06/02/16 16:00 97.3 73 19 115/55 100 06/02/16 13:02 18 06/02/16 12:10 98 Nasal Cannula 2.00 06/02/16 12:00 97.2 78 19 114/61 99 I/O 06/02/16 06/02/16 06/02/16 06/03/16 06/03/16 06/03/16 07:00 15:00 23:00 07:00 15:00 23:00 Intake Total 690 ml 960 ml 920 ml 660 ml Output Total 370 ml 50 ml Balance 320 ml 910 ml 920 ml 660 ml Intake Oral 240 ml 960 ml 240 ml 240 ml IV Total 450 ml 680 ml 420 ml Output Urine Total 370 ml 50 ml Bladder Scan Volume Amount 4 ml # Voids 4 3 # Bowel Movements 0 0 0 Result Diagram: 06/03/16 0415 06/02/16 0722 Imaging Last Impressions Hip X-Ray 06/01/16 0000 Signed Impressions: Service Date/Time: Wednesday, June 01, 2016 11:40 - CONCLUSION: Fluoroscopic image during placement of a compression pin/nail in left. Derrick Tabor MD Hip and Pelvis X-Ray 05/31/16 0000 Signed Impressions: Service Date/Time: Tuesday, May 31, 2016 17:10 - CONCLUSION: Comminuted intertrochanteric proximal left femur fracture with 2.5 cm displacement of the lesser trochanter fragment. Mild osteoarthritic findings of the hips. Lan Lopez MD Objective Remarks General: Elderly female in no acute distress. Heart: Regular rate and rhythm. No murmur. Lungs: Clear to auscultation bilaterally. No wheezes, rales, or rhonchi. Breathing is nonlabored. Abdomen: Soft, nontender, nondistended. Extremities: No lower extremity edema. Psych: Alert and oriented. Procedures 06/01/16 Left hip treatment of intertrochanteric fracture with intramedullary nail Urinary Catheter: No Vascular Central Line Catheter: No A/P Problem List: (1) Intertrochanteric fracture of left hip ICD Code: S72.142A Status: Acute (2) Postoperative anemia ICD Code: D64.9 Status: Acute (3) Hypertension ICD Code: I10 Status: Chronic (4) JONATHAN (acute kidney injury) ICD Code: N17.9 Status: Resolved (5) Recurrent UTI ICD Code: N39.0 Status: Acute Assessment and Plan 1. Left femur fracture: Status post intramedullary nail fixation, POD #2. Management per orthopedic surgery. Continue pain control, bowel regimen, physical therapy. 2. Postoperative anemia: Hemoglobin is low, but stable overnight. Recheck H&H this afternoon. Transfuse if necessary. 3. Hypertension: Exacerbated by pain. Improved. Continue home medications. Vasotec as needed. 4. Acute kidney injury: Resolved. This was likely prerenal. 5. DVT prophylaxis: Lovenox. 6. Recurrent UTI: Patient reporting dysuria and increased urinary frequency. Check UA. Discharge Planning Possible discharge to SNF tomorrow if clinically stable. Problem Qualifiers (1) Intertrochanteric fracture of left hip: Qualified Code: S72.142A - Intertrochanteric fracture of left hip, closed, initial encounter Shan Georges MD Jun 03, 2016 10:57
[2016-06-03] MEDS: ENOXAPARIN SODIUM 40 MG/0.4 ML SYRINGE SQ SCH (11:30)
[2016-06-03 12:00] VITALS: BP 128/77; PULSE 100; RESP 18; TEMP 98.7; O2SAT 93
--- NOTE | 2016-06-03 12:57 | PD.ORT.PN ---
Subjective Post Op Day #: 2 Subjective Remarks Patient is resting comfortably in bed with mild to moderate left hip. Patient is very lethargic and sleepy, likely due to the anemia. Spoke with primary RN who is addressing this with medical. Objective Vitals Vital Signs Date Time Temp Pulse Resp B/P Pulse Ox O2 Delivery O2 Flow Rate FiO2 06/03/16 08:00 97.1 78 18 128/60 99 06/03/16 00:25 98.3 75 19 127/62 97 06/02/16 21:31 Nasal Cannula 2.00 06/02/16 20:30 97.9 79 18 139/68 100 06/02/16 16:00 97.3 73 19 115/55 100 06/02/16 13:02 18 I/O 06/02/16 06/02/16 06/02/16 06/03/16 06/03/16 06/03/16 07:00 15:00 23:00 07:00 15:00 23:00 Intake Total 690 ml 960 ml 920 ml 660 ml Output Total 370 ml 50 ml Balance 320 ml 910 ml 920 ml 660 ml Intake Oral 240 ml 960 ml 240 ml 240 ml IV Total 450 ml 680 ml 420 ml Output Urine Total 370 ml 50 ml Bladder Scan Volume Amount 4 ml # Voids 4 3 # Bowel Movements 0 0 0 Result Diagram: 06/03/16 0415 06/02/16 0722 Procedures Left hip treatment of intertrochanteric fracture with intramedullary nail Objective Remarks Dressings are C/D/I. Mild swelling to the LLE. EHL/TA/G intact. 2+ pedal pulse. Calf is soft and nontender. + SILT. HGB is 7.6 (Anemic) Assessment & Plan Ortho Post Op Day #: 2 Problem List: Assessment and Plan POD #2: Left hip treatment of intertrochanteric fracture with intramedullary nail 1. TTWB LLE 2. Lovenox for DVT prophylaxis 3. Ice to the left hip PRN 4. Plan is for discharge to SNF today or Friday if medically cleared and stable. 5. Patient is anemic and Medical is planning to transfuse. Cullen Corcoran Jun 03, 2016 12:57
[2016-06-03 13:26] VITALS: O2SAT 93
[2016-06-03 16:00] VITALS: BP 136/58; PULSE 72; RESP 18; TEMP 98.8; O2SAT 95
[2016-06-03 16:17] LABS: HEMATOCRIT 24.3 % (35.0-46.0); REVIEW FLAG FINAL
[2016-06-03] MEDS: MAGNESIUM HYDROXIDE SUSP 30 ML CUP PO PRN (19:57)
[2016-06-03 20:00] VITALS: BP 130/66; PULSE 88; RESP 17; TEMP 99.5; O2SAT 96
[2016-06-03 21:15] LABS: BACTERIA, URINE OCC /hpf; BLOOD, URINE NEG (NEG); COMMENT (UR) CULT NOT INDICATED; CULTURE IF INDICATED CULT NOT INDICATED; GLUCOSE,URINE NEG (NEG); KETONE, URINE 40 mg/dL (NEG); NITRITE,URINE NEG (NEG); PH, URINE 5.5 (5.0-8.5); URINE COLOR YELLOW (YELLW/STRAW)
[2016-06-04] VITALS (9 sets, daily range): BP systolic 133–157; BP diastolic 64–74; PULSE 84–105; RESP 16–18; TEMP 98.1–100.5; O2SAT 92–97
[2016-06-04 05:16] LABS: AUTOMATED NEUTROPHIL # 5.4 TH/MM3 (1.8-7.7); BASOPHIL % 0.6 % (0.0-2.0); EOSINOPHIL # 0.3 TH/MM3 (0-0.4); EOSINOPHIL % 3.5 % (0.0-4.0); HEMATOCRIT 21.6 % (35.0-46.0); HEMO FLAGS DIFF FINAL; LYMPH % 14.1 % (9.0-44.0); LYMPHOCYTE # 1.1 TH/MM3 (1.0-4.8); MEAN CELL VOLUME 86.2 FL (80.0-100.0); MEAN CORPUSCULAR HEMOGLOBIN 29.6 PG (27.0-34.0); MEAN CORPUSCULAR HGB CONC 34.4 % (32.0-36.0); MONO % 10.2 % (0.0-8.0); NEUT % 71.6 % (16.0-70.0); PLATELET COUNT 199 TH/MM3 (150-450); RED BLOOD COUNT 2.51 MIL/MM3 (4.00-5.30); RED CELL DISTRIBUTION WIDTH 14.2 % (11.6-17.2); WHITE BLOOD COUNT 7.6 TH/MM3 (4.0-11.0)
[2016-06-04] MEDS: LEVOTHYROXINE SODIUM 50 MCG TAB PO SCH (05:18)
[2016-06-04] MEDS ORDERED: SODIUM CHLOR 0.9% 250 ML INJ 250 ML IV ONE (08:00)
[2016-06-04] MEDS: POLYETHYLENE GLYCOL 17 GM PKG PO SCH (09:00)
[2016-06-04] MEDS: SENNOSIDES 8.6 MG TAB PO SCH (09:00)
[2016-06-04] MEDS: DOCUSATE SODIUM 100 MG CAP PO SCH ×2 (09:00→22:16)
[2016-06-04] MEDS: PANTOPRAZOLE SOD 40 MG DELAYED RELEASE TAB PO SCH (09:23)
[2016-06-04] MEDS: DILTIAZEM-CD 180 MG CAP ER PO SCH (09:23)
[2016-06-04] MEDS: MULTIVITAMINS/MINERALS THERAPEUTIC TAB PO SCH ×2 (09:23→22:16)
[2016-06-04] MEDS: POTASSIUM CHLORIDE 20 MEQ CONTROLLED RELEASE TAB PO SCH (09:24)
[2016-06-04] MEDS: SODIUM CHLORIDE 0.9% FLUSH 5 ML FLUSH IVF SCH ×2 (09:25→22:17)
[2016-06-04] MEDS: ENOXAPARIN SODIUM 40 MG/0.4 ML SYRINGE SQ SCH (09:27)
[2016-06-04] MEDS ORDERED: NITR1CAP36 PO (13:03)
[2016-06-04] MEDS ORDERED: LATA0.002 EACH EYE (13:03)
--- NOTE | 2016-06-04 16:08 | PD.ORT.PN ---
Subjective Post Op Day #: 3 Subjective Remarks Patient is resting comfortably in bed with decreased pain to the left hip. Patient received transfusion today for anemia. Objective Vitals Vital Signs Date Time Temp Pulse Resp B/P Pulse Ox O2 Delivery O2 Flow Rate FiO2 06/04/16 12:45 100.5 99 18 133/71 92 06/04/16 12:30 99.0 105 18 156/70 97 06/04/16 12:00 99.0 105 18 156/70 97 06/04/16 09:00 93 21 06/04/16 08:00 98.3 86 18 145/72 95 06/04/16 04:00 98.1 84 16 157/74 95 06/04/16 00:00 98.6 85 17 144/64 93 06/03/16 20:00 99.5 88 17 130/66 96 I/O 06/03/16 06/03/16 06/03/16 06/04/16 06/04/16 06/04/16 07:00 15:00 23:00 07:00 15:00 23:00 Intake Total 660 ml 480 ml 240 ml 240 ml Balance 660 ml 480 ml 240 ml 240 ml Intake Oral 240 ml 480 ml 240 ml 240 ml IV Total 420 ml # Voids 3 3 2 3 # Bowel Movements 0 0 0 1 Result Diagram: 06/04/16 0449 06/02/16 0722 Procedures Left hip treatment of intertrochanteric fracture with intramedullary nail Objective Remarks Dressings are C/D/I. Mild swelling to the LLE. EHL/TA/G intact. 2+ pedal pulse. Calf is soft and nontender. + SILT. Assessment & Plan Ortho Post Op Day #: 3 Problem List: Assessment and Plan POD #3: Left hip treatment of intertrochanteric fracture with intramedullary nail 1. TTWB LLE 2. Lovenox for DVT prophylaxis 3. Ice to the left hip PRN 4. Plan is for discharge to SNF today or Friday if medically cleared and stable. 5. Stable per ortho for discharge. Cullen Corcoran Jun 04, 2016 16:08
[2016-06-04 18:21] LABS: HEMATOCRIT 26.6 % (35.0-46.0); REVIEW FLAG FINAL
[2016-06-05 00:26] VITALS: BP 144/71; PULSE 91; RESP 16; TEMP 96.6; O2SAT 96
[2016-06-05] MEDS: LEVOTHYROXINE SODIUM 50 MCG TAB PO SCH (06:22)
[2016-06-05 07:28] VITALS: BP 164/83; PULSE 87; RESP 18; TEMP 98; O2SAT 97
[2016-06-05] MEDS: POTASSIUM CHLORIDE 20 MEQ CONTROLLED RELEASE TAB PO SCH (08:35)
[2016-06-05] MEDS: PANTOPRAZOLE SOD 40 MG DELAYED RELEASE TAB PO SCH (08:35)
[2016-06-05] MEDS: DOCUSATE SODIUM 100 MG CAP PO SCH (08:36)
[2016-06-05] MEDS: SODIUM CHLORIDE 0.9% FLUSH 5 ML FLUSH IVF SCH (08:36)
[2016-06-05] MEDS: POLYETHYLENE GLYCOL 17 GM PKG PO SCH (08:36)
[2016-06-05] MEDS: DILTIAZEM-CD 180 MG CAP ER PO SCH (08:36)
[2016-06-05] MEDS: SENNOSIDES 8.6 MG TAB PO SCH (08:37)
[2016-06-05] MEDS: MULTIVITAMINS/MINERALS THERAPEUTIC TAB PO SCH (08:37)
[2016-06-05] MEDS ORDERED: DOCU1CAP39 PO (10:06)
--- NOTE | 2016-06-05 10:26 | HHI.DCPOC ---
Discharge Care Plan Diagnosis: (1) Intertrochanteric fracture of left hip (2) Postoperative anemia (3) Hypertension Goals to Promote Your Health * To prevent worsening of your condition and complications * To maintain your health at the optimal level Directions to Meet Your Goals Take your medications as prescribed Follow your dietary instruction Follow activity as directed Keep your appointments as scheduled Take your immunizations and boosters as scheduled If your symptoms worsen call your PCP, if no PCP go to Urgent Care Center or Emergency Room Smoking is Dangerous to Your Health. Avoid second hand smoke Call the 24-hour hour crisis hotline for domestic abuse at Shan Georges MD Jun 05, 2016 10:26
[2016-06-05] MEDS ORDERED: NITROFURANTOIN MONOHYD MACROCR 100 MG CAP PO ONE (10:30)
[2016-06-05] MEDS: ENOXAPARIN SODIUM 40 MG/0.4 ML SYRINGE SQ SCH (11:17)
[2016-06-05 11:24] LABS: HEMATOCRIT 26.6 % (35.0-46.0); REVIEW FLAG FINAL
--- NOTE | 2016-06-05 11:37 | HHI.DS ---
Discharge Summary Admission Date May 31, 2016 at 18:42 Discharge Date: Jun 05, 2016 Admitting Diagnosis left hip fracture (1) Intertrochanteric fracture of left hip ICD Code: S72.142A (2) Acute blood loss anemia ICD Code: D62 (3) Postoperative anemia ICD Code: D64.9 (4) Hypertension ICD Code: I10 (5) JONATHAN (acute kidney injury) ICD Code: N17.9 (6) Recurrent UTI ICD Code: N39.0 Procedures 06/01/16 Left hip treatment of intertrochanteric fracture with intramedullary nail Brief History - From Admission The patient is an 86-year-old female with a past medical history of hypertension and diverticulitis who is presenting to the hospital after having a fall. She was waiting for a bus and she tried to hold the rail for balance but she lost balance and fell on the left side of her body. She said she had significant pain in her left hip after the fall. She was unable to walk following the injury. She said she had been ambulating with a walker for most of the day as she was walking long distances. The patient was found to have a left intertrochanteric fracture and was taken for surgery on 06/01/16. The patient tolerated the procedure well. She was a little confused following the surgery and complained of pain in her left hip. She said she has not eaten anything yet. She does endorse some constipation recently. CBC/BMP: 06/05/16 1102 06/02/16 0722 Significant Findings Laboratory Tests Test 06/03/16 06/03/16 06/03/16 06/04/16 04:15 15:30 20:10 04:49 Red Blood Count 2.54 MIL/MM3 2.51 MIL/MM3 (4.00-5.30) (4.00-5.30) Hemoglobin 7.6 GM/DL 8.1 GM/DL 7.4 GM/DL (11.6-15.3) (11.6-15.3) (11.6-15.3) Hematocrit 22.0 % 24.3 % 21.6 % (35.0-46.0) (35.0-46.0) (35.0-46.0) Urine Ketones 40 mg/dL (NEG) Urine Leukocyte Esterase TRACE (NEG) Urine Bacteria OCC /hpf (NONE) Neutrophils (%) (Auto) 71.6 % (16.0-70.0) Monocytes (%) (Auto) 10.2 % (0.0-8.0) Test 06/04/16 06/05/16 17:45 11:02 Hemoglobin 9.1 GM/DL 9.4 GM/DL (11.6-15.3) (11.6-15.3) Hematocrit 26.6 % 26.6 % (35.0-46.0) (35.0-46.0) Imaging Last Impressions Hip X-Ray 06/01/16 0000 Signed Impressions: Service Date/Time: Wednesday, June 01, 2016 11:40 - CONCLUSION: Fluoroscopic image during placement of a compression pin/nail in left. Derrick Tabor MD Hip and Pelvis X-Ray 05/31/16 0000 Signed Impressions: Service Date/Time: Tuesday, May 31, 2016 17:10 - CONCLUSION: Comminuted intertrochanteric proximal left femur fracture with 2.5 cm displacement of the lesser trochanter fragment. Mild osteoarthritic findings of the hips. Lan Lopez MD PE at Discharge General: Elderly female in no acute distress. Heart: Regular rate and rhythm. No murmur. Lungs: Clear to auscultation bilaterally. No wheezes, rales, or rhonchi. Breathing is nonlabored. Abdomen: Soft, nontender, nondistended. Extremities: No lower extremity edema. Psych: Alert and oriented. Pt update on day of discharge The patient has no complaints today. Denies bleeding. Pain is well controlled. Denies chest pain, dyspnea, nausea, vomiting, diarrhea, constipation. Hospital Course The patient was admitted for treatment of left hip fracture following a fall. Orthopedic surgery was consulted. Intramedullary nail was placed to treat the fracture. Routine postoperative care was continued including physical therapy, pain control, and bowel regimen. Patient developed postoperative anemia, likely secondary to acute blood loss. H&H were monitored closely. She was given transfusion of 1 unit PRBCs. Hemoglobin improved. She was felt to be stable for discharge to SNF. Pt Condition on Discharge: Stable Discharge Disposition: Discharge to SNF Discharge Time: > 30 minutes Discharge Instructions DIET: Follow Instructions for: As Tolerated, No Restrictions Activities you can perform: Toe Touch Weight Bearing Follow up Referrals: Orthopedics - 2 Weeks with Jason Lind MD PCP Follow-up - 2 Weeks New Medications: Aspirin (Aspirin) 325 Mg Tab 325 MG PO DAILY Start Aspirin after Lovenox is completed. Prevent Blood Clot # 30 Ref 0 TAB Enoxaparin Inj (Lovenox Inj) 40 Mg/0.4 Ml Syr 40 MG SQ DAILY Start Aspirin after Lovenox is completed. Blood Clot Prevention # 10 Ref 0 SYRINGE Hydrocodone-Acetaminophen ([place]) 5-325 mg Tab 1-2 TAB PO Q4H PRN PAIN #40 Ref 0 TAB Docusate Sodium (Dok) 100 Mg Cap 100 MG PO BID Constipation #30 CAP Continued Medications: Diltiazem ER 24 HR (Taztia Xt) 180 Mg Caper 360 MG PO DAILY #30 Ref 0 CAP Latanoprost Opth Drops (Latanoprost Opth Drops) 0.005% Drops 1 DROP EACH EYE HS Refrigerate until opened. Glaucoma #2.5 Ref 0 ML Levothyroxine (Levothyroxine) 50 Mcg Tab 50 MCG PO DAILY Thyroid #30 Ref 0 TAB Nitrofurantoin Macrocrystal (Nitrofurantoin Macrocrystal) 100 Mg Cap 100 MG PO EVERY OTHER DAY Infection Ref 0 CAP Omeprazole (Omeprazole) 40 Mg Cap 40 MG PO DAILY #30 Ref 0 CAP Potassium Chloride ER (K-Tab) 20 Meq Tab 40 MEQ PO DAILY Electrolyte Replacement #30 Ref 0 TAB Discontinued Medications: Aspirin (Aspirin) 81 Mg Tabdr 81 MG PO DAILY TAB Furosemide (Furosemide) 40 Mg Tab 40 MG PO DAILY #30 Ref 0 TAB Shan Georges MD Jun 05, 2016 11:37
[2016-06-05 11:48] VITALS: BP 170/83; PULSE 87; RESP 16; TEMP 98.6; O2SAT 96
[2016-06-05 12:48] VITALS: O2SAT 97
[2016-06-05 14:00] VITALS: BP 151/73
[2016-06-05] MEDS: ACETAMINOPHEN/HYDROcodone 325 MG/5 MG TAB PO PRN (14:58)
[2016-06-05] MEDS ORDERED: LATANOPROST 0.005% OPHT SOLN 2.5 ML BTL EACH EYE SCH (21:00)
[2016-06-07] MEDS ORDERED: NITROFURANTOIN MONOHYD MACROCR 100 MG CAP PO SCH (09:00)
== END 2016-06-05 15:13 | DRG 481 ==
LOC: PHED 16:09 → PHEDA 18:42 → N06B 22:43
PROVIDERS: ADMIT Family Medicine; ATTEND Family Medicine
PROC: 0T9B70Z Drainage of Bladder with Drainage Device, Via Natural or Artificial Opening (ICD-10-PCS; 2016-05-31)
PROC: 0QS706Z Reposition Left Upper Femur with Intramedullary Internal Fixation Device, Open Approach (ICD-10-PCS; principal; 2016-06-01 11:09)
PROC: 30233N1 Transfusion of Nonautologous Red Blood Cells into Peripheral Vein, Percutaneous Approach (ICD-10-PCS; 2016-06-03)
DX: S72.142A Displaced intertrochanteric fracture of left femur, initial encounter for closed fracture (principal); N17.9 Acute kidney failure, unspecified; D62 Acute posthemorrhagic anemia; N39.0 Urinary tract infection, site not specified; I10 Essential (primary) hypertension; E03.9 Hypothyroidism, unspecified; K21.9 Gastro-esophageal reflux disease without esophagitis; M54.9 Dorsalgia, unspecified; G89.29 Other chronic pain; K44.9 Diaphragmatic hernia without obstruction or gangrene; Z86.73 Personal history of transient ischemic attack (TIA), and cerebral infarction without residual deficits; K59.00 Constipation, unspecified; Z88.0 Allergy status to penicillin; Z88.2 Allergy status to sulfonamides; M17.9 Osteoarthritis of knee, unspecified; R11.0 Nausea; R35.0 Frequency of micturition; R30.0 Dysuria; Z87.440 Personal history of urinary (tract) infections; W18.39XA Other fall on same level, initial encounter; Y93.89 Activity, other specified; Y92.521 Bus station as the place of occurrence of the external cause
CPT/HCPCS: 36430; 73502; 76000; 80048; 80053; 81001; 82272; 83735; 85014; 85018; 85025; 85027; 85610; 85730; 86850; 86900; 86901; 86920; 93005; 94150; 96374; 96375; 96376; C1713; J0131; J1580; J1650; J2270; J2370; J2405; J2550; J3010; J3370; J7030; J7050; J7120; P9016

== ENCOUNTER 2016-08-28 09:34 | Observation (INO) | payer MEDICARE, OTHER ==
[~2016-08-28 09:34] MED LIST changes: +ASPI325T PO; -ASPI81TA82 PO; -ATOR20TA42 PO; +DOCU1CAP39 PO; +ENOX40P SQ; -FURO1TAB93 PO; +LATA0.002 EACH EYE; +LEVO50TA4 PO; -LEVO50TA48 PO; -NITR-29 PO; +NITR1CAP36 PO; +NORC5TAB PO; -POTA10SO13 PO; +POTA1TAB4 PO; +TAZT180C PO; -TAZT360C2 PO
[2016-08-28 09:40] VITALS: BP 158/100; PULSE 95; RESP 16; TEMP 98.7; O2SAT 99
[2016-08-28] MEDS ORDERED: ASPI81CH CHEW (09:58)
[2016-08-28] MEDS ORDERED: SODIUM CHLORIDE 0.9% FLUSH 10 ML FLUSH IVF PRN (10:15)
--- NOTE | 2016-08-28 10:15 | PD ---
HPI Chief Complaint: Neuro Symptoms/ Deficits Time Seen by Provider: 09:54 Travel History International Travel<30 days: No Contact w/Intl Traveler<30days: No Traveled to known affect area: No History of Present Illness HPI Send 86 year-old woman who presents to the emergency department after an episode of expressive aphasia this morning. She reports that she woke up feeling a little bit funny. She had some pressure on the top of her head this started this morning. She describes as uncomfortable. She has headaches but never anything like this before. States that while eating breakfast about with her daughter she had a five-minute episode where she states she was talking gibberish. She describes not being able to get the right words out. She remembers the event. She's never had one like it before. Only medical history is high blood pressure, and a recent right hip fracture. Suture blood pressure is been a little bit elevated recently. No history of cardiovascular disease, no history of cervical vascular disease. No other complaints. History Past Medical History Narrative Medical Left hip fracture Hypertension Hypothyroidism Diverticulitis GERD : 2 Para: 2 Social History Alcohol Use: Yes (Rarely) Tobacco Use: No Allergies-Medications (Allergen,Severity, Reaction): Coded Allergies: Penicillin (Verified Allergy, Severe, Anaphylaxis, 08/28/16) Sulfa (Verified Allergy, Severe, Anaphylaxis, 08/28/16) Reported Meds & Prescriptions Reported Meds & Active Scripts Active Reported Lisinopril 10 Mg Tab 10 Mg PO DAILY Aspirin 81 Mg Chew 81 Mg CHEW DAILY Taztia Xt (Diltiazem ER 24 HR) 180 Mg Caper 180 Mg PO DAILY K-Tab (Potassium Chloride) 20 Meq Tab 20 Meq PO DAILY Omeprazole 40 Mg Cap 40 Mg PO DAILY Levothyroxine (Levothyroxine Sodium) 50 Mcg Tab 50 Mcg PO DAILY Review of Systems Except as stated in HPI: all other systems reviewed are Neg Physical Exam Narrative GENERAL: Well-appearing 86 year-old woman, no acute distress. SKIN: Focused skin assessment warm/dry. HEAD: Atraumatic. Normocephalic. EYES: Pupils equal and round. No scleral icterus. No injection or drainage. ENT: No nasal bleeding or discharge. Mucous membranes pink and moist. NECK: Trachea midline. No JVD. CARDIOVASCULAR: Regular rate and rhythm. No murmur appreciated. RESPIRATORY: No accessory muscle use. Clear to auscultation. Breath sounds equal bilaterally. GASTROINTESTINAL: Abdomen soft, non-tender, nondistended. Hepatic and splenic margins not palpable. MUSCULOSKELETAL: No obvious deformities. No clubbing. No cyanosis. No edema. NEUROLOGICAL: Awake and alert. Cranial nerves II through XII are intact. Strength full and equal upper and lower extremities proximal distal muscle groups. No pronator drift. No lower extremity drift. Normal finger to nose. Normal [id number]. Sensation intact to light touch and equal throughout. Data Data Last Documented VS Vital Signs Date Time Temp Pulse Resp B/P Pulse Ox O2 Delivery O2 Flow Rate FiO2 08/28/16 10:17 99 Room Air 08/28/16 09:40 98.7 95 16 158/100 Orders Electrocardiogram (08/28/16 10:10) Prothrombin Time / Inr (Pt) (08/28/16 10:10) Act Partial Throm Time (Ptt) (08/28/16 10:10) Complete Blood Count With Diff (08/28/16 10:10) Comprehensive Metabolic Panel (08/28/16 10:10) Troponin I (08/28/16 10:10) Urinalysis - C+S If Indicated (08/28/16 10:10) Ct Brain W/O Iv Contrast(Rout) (08/28/16 10:10) Chest, Single Ap (08/28/16 10:10) Ecg Monitoring (08/28/16 10:10) Iv Access Insert/Monitor (08/28/16 10:10) Oximetry (08/28/16 10:10) Sodium Chloride 0.9% Flush (Ns Flush) (08/28/16 10:15) Urine Culture (08/28/16 10:14) Ciprofloxacin 400 Mg Premix (Cipro 400 M (08/28/16 11:15) Admit Order (Ed Use Only) (08/28/16 ) Labs Laboratory Tests Test 08/28/16 10:14 White Blood Count 5.3 TH/MM3 Red Blood Count 4.70 MIL/MM3 Hemoglobin 13.5 GM/DL Hematocrit 40.9 % Mean Corpuscular Volume 87.0 FL Mean Corpuscular Hemoglobin 28.8 PG Mean Corpuscular Hemoglobin 33.1 % Concent Red Cell Distribution Width 14.2 % Platelet Count 257 TH/MM3 Mean Platelet Volume 8.6 FL Neutrophils (%) (Auto) 57.8 % Lymphocytes (%) (Auto) 28.1 % Monocytes (%) (Auto) 8.7 % Eosinophils (%) (Auto) 4.6 % Basophils (%) (Auto) 0.8 % Neutrophils # (Auto) 3.1 TH/MM3 Lymphocytes # (Auto) 1.5 TH/MM3 Monocytes # (Auto) 0.5 TH/MM3 Eosinophils # (Auto) 0.2 TH/MM3 Basophils # (Auto) 0.0 TH/MM3 CBC Comment DIFF FINAL Differential Comment Prothrombin Time 11.0 SEC Prothromb Time International 1.0 RATIO Ratio Activated Partial 26.5 SEC Thromboplast Time Urine Collection Type CATH Urine Color YELLOW Urine Turbidity SLIGHT Urine pH 6.0 Urine Specific [place] 1.010 Urine Protein TRACE mg/dL Urine Glucose (UA) NEG mg/dL Urine Ketones NEG mg/dL Urine Occult Blood MOD Urine Nitrite POS Urine Bilirubin NEG Urine Leukocyte Esterase LARGE Urine RBC 25-49 /hpf Urine WBC INNUM /hpf Urine WBC Clumps MANY Urine Renal Epithelial Cells 0-5 /hpf Urine Bacteria FEW /hpf Microscopic Urinalysis Comment CATH-CULTURE IND Urine Collection Time 10:14 Sodium Level 142 MEQ/L Potassium Level 3.9 MEQ/L Chloride Level 105 MEQ/L Carbon Dioxide Level 29.5 MEQ/L Anion Gap 8 MEQ/L Blood Urea Nitrogen 16 MG/DL Creatinine 0.90 MG/DL Estimat Glomerular Filtration 59 ML/MIN Rate Random Glucose 115 MG/DL Calcium Level 8.9 MG/DL Total Bilirubin 0.5 MG/DL Aspartate Amino Transf 12 U/L (AST/SGOT) Alanine Aminotransferase 13 U/L (ALT/SGPT) Alkaline Phosphatase 78 U/L Troponin I LESS THAN 0.02 NG/ML Total Protein 7.8 GM/DL Albumin 3.8 GM/DL [facility] Medical Decision Making Medical Screen Exam Complete: Yes Emergency Medical Condition: Yes Interpretation(s) LABS: CBC unremarkable. CMP unremarkable. Troponin negative. Coags normal UA with significant pyuria. CT head: Negative. My review of chest x-ray: Some haziness in the left base, no distinct infiltrate. No definite abnormality. My review of EKG: Normal sinus rhythm at a rate of 76, leftward axis, normal intervals, no definite evidence of acute ischemia. Differential Diagnosis CVA, TIA, ICH, infection, adverse medication effect, other Narrative Course Medical decision making 86 year-old woman who presents to the emergency department with a 5 minute long episode of expressive aphasia, concerning for TIA symptoms. We'll check labs, CT, x-ray, likely admission for further evaluation. Diagnosis Primary Impression: UTI (urinary tract infection) Qualified Code: N30.00 - Acute cystitis without hematuria Additional Impression: TIA (transient ischemic attack) Qualified Code: G45.9 - Transient cerebral ischemia, unspecified type Jay Willard MD August 28, 2016 10:15
[2016-08-28 10:17] VITALS: O2SAT 99
[2016-08-28 10:19] LABS: AUTOMATED NEUTROPHIL # 3.1 TH/MM3 (1.8-7.7); BASOPHIL % 0.8 % (0.0-2.0); EOSINOPHIL # 0.2 TH/MM3 (0-0.4); EOSINOPHIL % 4.6 % (0.0-4.0); HEMATOCRIT 40.9 % (35.0-46.0); HEMO FLAGS DIFF FINAL; LYMPH % 28.1 % (9.0-44.0); LYMPHOCYTE # 1.5 TH/MM3 (1.0-4.8); MEAN CORPUSCULAR HEMOGLOBIN 28.8 PG (27.0-34.0); MEAN CORPUSCULAR HGB CONC 33.1 % (32.0-36.0); MONO % 8.7 % (0.0-8.0); NEUT % 57.8 % (16.0-70.0); PLATELET COUNT 257 TH/MM3 (150-450); RED CELL DISTRIBUTION WIDTH 14.2 % (11.6-17.2); WHITE BLOOD COUNT 5.3 TH/MM3 (4.0-11.0)
[2016-08-28 10:20] LABS: GLUCOSE,URINE NEG (NEG); KETONE, URINE NEG (NEG)
[2016-08-28 10:25] LABS: BLOOD, URINE MOD (NEG); NITRITE,URINE POS (NEG)
[2016-08-28 10:26] LABS: URINE COLOR YELLOW (YELLW/STRAW); WBC, URINE INNUM /hpf (0-5)
[2016-08-28 10:27] LABS: BACTERIA, URINE FEW /hpf; METHOD OF COLLECTION CATH; RENAL EPITHELIAL CELLS 0-5 /hpf
[2016-08-28 10:28] LABS: COMMENT (UR) CATH-CULTURE IND; CULTURE IF INDICATED CATH CULTURE IND
[2016-08-28 10:29] LABS: CHLORIDE 105 MEQ/L (98-107); POTASSIUM 3.9 MEQ/L (3.5-5.1); SODIUM (NA) 142 MEQ/L (136-145)
[2016-08-28 10:32] LABS: ANION GAP 8 MEQ/L (5-15); BICARBONATE 29.5 MEQ/L (21.0-32.0)
[2016-08-28 10:33] LABS: APTT (PATIENT) 26.5 SEC (24.3-30.1); BLOOD UREA NITROGEN 16 MG/DL (7-18)
[2016-08-28 10:35] LABS: ALT (GPT) 13 U/L (10-53)
[2016-08-28] MEDS ORDERED: LISI10TA3 PO (10:35)
[2016-08-28 10:36] LABS: AST (GOT) 12 U/L (15-37); GLOMERULAR FILTRATION RATE 59 ML/MIN (>89)
[2016-08-28 10:37] LABS: TOTAL BILIRUBIN ADULT 0.5 MG/DL (0.2-1.0)
[2016-08-28 10:38] LABS: ALKALINE PHOSPHATASE 78 U/L (45-117)
--- NOTE | 2016-08-28 11:03 | RADHPO ---
EXAM DATE/TIME: 08/28/2016 10:20 [facility] COMPARISON: CT BRAIN W/O CONTRAST, December 11, 2012, 21:24. INDICATIONS : Cephalgia. Resolved slurred speech from this morning. RADIATION DOSE: 64.03 CTDIvol (mGy) MEDICAL HISTORY : Cerebrovascular disease. Cardiovascular disease Hypertension. SURGICAL HISTORY : Cholecystectomy. Hysterectomy. ENCOUNTER: Initial ACUITY: 1 day PAIN SCALE: 7/10 LOCATION: cranial TECHNIQUE: Multiple contiguous axial images were obtained of the head. Using automated exposure control and adj ustment of the mA and/or kV according to patient size, radiation dose was kept as low as reasonably a chievable to obtain optimal diagnostic quality images. FINDINGS: There are stable bilateral basal ganglia lacunar infarcts. Lacunar infarcts are present in the nolan radiata bilaterally. There is patchy chronic appearing deep white matter hypodensity which is likely microvascular ischemic. There is no evidence of intracranial hemorrhage or mass. There is nothing to suggest acute infarction. There is fluid present in the sphenoid sinus. CONCLUSION: No acute intracranial findings Randall Saleem MD on August 28, 2016 at 10:53 Board Certified Radiologist. This report was verified electronically.
[2016-08-28] MEDS ORDERED: CIPROFLOXACIN 400 MG PREMIX 200 ML IV ONE (11:15)
--- NOTE | 2016-08-28 11:47 | RADHPO ---
EXAM DATE/TIME: 08/28/2016 10:49 [facility] COMPARISON: CHEST SINGLE AP, April 08, 2014, 9:38. INDICATIONS : Short of breath. MEDICAL HISTORY : Hypertension. SURGICAL HISTORY : None. ENCOUNTER: Initial ACUITY: 1 day PAIN SCORE: 0/10 LOCATION: Bilateral chest FINDINGS: The heart and mediastinal structures are normal. The pulmonary vascular pattern is also normal. The lungs are clear. CONCLUSION: No acute cardiopulmonary disease. Fransisco De Jesus MD on August 28, 2016 at 11:42 Board Certified Radiologist. This report was verified electronically.
[2016-08-28] MEDS ORDERED: SODIUM CHLORIDE 0.9% FLUSH 10 ML FLUSH IV FLUSH PRN (12:00)
[2016-08-28] MEDS ORDERED: DILTIAZEM-CD 180 MG CAP ER PO SCH (12:00)
[2016-08-28] MEDS ORDERED: ZOLPIDEM TARTRATE 5 MG TAB PO PRN (12:00)
[2016-08-28] MEDS ORDERED: LISINOPRIL 10 MG TAB PO SCH (12:00)
[2016-08-28] MEDS ORDERED: NALOXONE HCL 0.4 MG/ML AMP IV PRN (12:00)
[2016-08-28] MEDS ORDERED: SENNOSIDES 8.6 MG TAB PO PRN (12:00)
[2016-08-28] MEDS ORDERED: ASPIRIN 81 MG CHEW TAB CHEW SCH (12:00)
[2016-08-28] MEDS ORDERED: SODIUM CHLOR 0.45% 1000 ML INJ 1,000 ML IV SCH (12:00)
[2016-08-28] MEDS ORDERED: ACETAMINOPHEN 325 MG TAB PO PRN ×2 (12:00)
--- NOTE | 2016-08-28 12:04 | HHI.HP ---
[facility]Staff Ad[facility] Diagnosis TIA, UTI Diagnoses: Chief Complaint: Difficulty with speech Travel History International Travel<30 Days: No Contact w/Intl Traveler <30 Da: No Traveled to Known Affected Are: No History of Present Illness The patient is an 86-year-old female with a past medical history of hypertension who is presenting to the hospital with word finding difficulty. The patient says that this morning she was drinking coffee at her table when all of a sudden she had trouble with her speech. She said that she was unable to say the words that she meant to say. Her family stated that it sounded like word salad. The patient said that this lasted for 5 minutes and then started to gradually get better. She knew the words she wanted to say she was just unable to articulate them. She said accompanying the difficulty with speech she experienced a headache. The pain was located at the top of her head and was described as a burning sensation. She rated the pain as a 6 out of 10 in severity. The patient endorses that her vision improved during the episode. She also noted some shortness of breath prior to the episode but she says that is related to her congestion which she chronically has. The patient says that her speech is back to normal. She says she has a residual headache but it is simply bothersome at this time. The patient says she went to her orthopedic surgeon yesterday as a follow-up for her left hip surgery. She notes that her blood pressure was elevated at that visit in the 140s or 150s systolic. The patient says she has been ambulating with a walker. The patient endorses urinary frequency which has been chronic in nature. She denies any dysuria. She denies any fevers. Review of Systems Except as stated in HPI: all other systems reviewed are Neg Past Family Social History Past Medical History Hypertension GERD Diverticulitis Hypothyroidism Past Surgical History Left hip fracture repair Partial hysterectomy Cholecystectomy Allergies: Coded Allergies: Penicillin (Verified Allergy, Severe, Anaphylaxis, 08/28/16) Sulfa (Verified Allergy, Severe, Anaphylaxis, 08/28/16) Active Ordered Medications Current Medications Medications (Trade) Dose Ordered Sig/Maddison Route Start Time Stop Time Status Last Admin Sodium Chloride 2 ml 2 ml UNSCH PRN IVF 08/28/16 10:15 08/28/16 11:29 Ciprofloxacin/ Dextrose 200 ml @ 200 mls/hr ONCE ONCE IV 08/28/16 11:15 08/28/16 12:14 08/28/16 11:29 (Cipro 200 Mg Premix) 100 ml @ 100 mls/hr Q12H IV 08/29/16 00:00 UNV (Aspirin Chew) 81 mg DAILY CHEW 08/28/16 12:00 UNV (Cardizem Cd) 180 mg DAILY PO 08/28/16 12:00 UNV (Synthroid) 50 mcg DAILY PO 08/28/16 12:00 UNV (Prinivil) 10 mg DAILY PO 08/28/16 12:00 UNV Non-Formulary Medication 40 mg DAILY PO 08/28/16 12:00 UNV (NS Flush) 2 ml UNSCH PRN IV FLUSH 08/28/16 12:00 UNV (NS Flush) 2 ml BID IV FLUSH 08/28/16 21:00 UNV (Tylenol) 650 mg Q4H PRN PO 08/28/16 12:00 UNV (Colace) 100 mg Q12H PO 08/28/16 12:00 UNV (Senokot) 17.2 mg Q12H PRN PO 08/28/16 12:00 UNV (Ambien) 5 mg HS PRN PO 08/28/16 12:00 UNV (Lovenox Inj) 30 mg Q24H SQ 08/28/16 12:00 UNV (Tylenol) 650 mg Q6H PRN PO 08/28/16 12:00 UNV Family History CAD Social History The patient does not smoke. She drinks occasionally. Physical Exam Vital Signs Vital Signs Date Time Temp Pulse Resp B/P Pulse Ox O2 Delivery O2 Flow Rate FiO2 08/28/16 10:17 99 Room Air 08/28/16 09:40 98.7 95 16 158/100 99 Physical Exam GENERAL: Resting comfortably in bed. SKIN: Warm and dry. HEAD: Atraumatic. Normocephalic. EYES: Pupils equal and round. No scleral icterus. No injection or drainage. ENT: No nasal bleeding or discharge. Mucous membranes pink and moist. NECK: Trachea midline. No JVD. CARDIOVASCULAR: Regular rate and rhythm. No murmur appreciated. RESPIRATORY: No accessory muscle use. Clear to auscultation. Breath sounds equal bilaterally. GASTROINTESTINAL: Abdomen soft, non-tender, nondistended. Hepatic and splenic margins not palpable. MUSCULOSKELETAL: No obvious deformities. No clubbing. No cyanosis. No edema. NEUROLOGICAL: Awake and alert. No obvious cranial nerve deficits. Motor grossly within normal limits. Normal speech. PSYCHIATRIC: Appropriate mood and affect; insight and judgment normal. Laboratory Laboratory Tests Test 08/28/16 10:14 White Blood Count 5.3 Red Blood Count 4.70 Hemoglobin 13.5 Hematocrit 40.9 Mean Corpuscular Volume 87.0 Mean Corpuscular Hemoglobin 28.8 Mean Corpuscular Hemoglobin 33.1 Concent Red Cell Distribution Width 14.2 Platelet Count 257 Mean Platelet Volume 8.6 Neutrophils (%) (Auto) 57.8 Lymphocytes (%) (Auto) 28.1 Monocytes (%) (Auto) 8.7 Eosinophils (%) (Auto) 4.6 Basophils (%) (Auto) 0.8 Neutrophils # (Auto) 3.1 Lymphocytes # (Auto) 1.5 Monocytes # (Auto) 0.5 Eosinophils # (Auto) 0.2 Basophils # (Auto) 0.0 CBC Comment DIFF FINAL Differential Comment Prothrombin Time 11.0 Prothromb Time International 1.0 Ratio Activated Partial 26.5 Thromboplast Time Urine Collection Type CATH Urine Color YELLOW Urine Turbidity SLIGHT Urine pH 6.0 Urine Specific [place] 1.010 Urine Protein TRACE Urine Glucose (UA) NEG Urine Ketones NEG Urine Occult Blood MOD Urine Nitrite POS Urine Bilirubin NEG Urine Leukocyte Esterase LARGE Urine RBC 25-49 Urine WBC INNUM Urine WBC Clumps MANY Urine Renal Epithelial Cells 0-5 Urine Bacteria FEW Microscopic Urinalysis Comment CATH-CULTURE IND Urine Collection Time 10:14 Sodium Level 142 Potassium Level 3.9 Chloride Level 105 Carbon Dioxide Level 29.5 Anion Gap 8 Blood Urea Nitrogen 16 Creatinine 0.90 Estimat Glomerular Filtration 59 Rate Random Glucose 115 Calcium Level 8.9 Total Bilirubin 0.5 Aspartate Amino Transf 12 (AST/SGOT) Alanine Aminotransferase 13 (ALT/SGPT) Alkaline Phosphatase 78 Troponin I LESS THAN 0.02 Total Protein 7.8 Albumin 3.8 Date/Time Procedure Status Source Growth 08/28/16 10:14 Urine Culture Received Urine Clean Catch Pending Result Diagram: 08/28/16 1014 08/28/16 1014 Imaging Last Impressions Head CT 08/28/16 1010 Signed Impressions: Service Date/Time: Sunday, August 28, 2016 10:20 - CONCLUSION: No acute intracranial findings Randall Saleem MD Assessment and Plan Assessment and Plan Complicated migraine/ TIA The patient presents with word finding difficulties lasting about 5 minutes associated with a severe headache. Her symptoms have resolved at this time except for a minor headache. She does have a history of migraine. CT of the brain was unremarkable. - Neuro checks. - PT/ OT/ ST. - Continue aspirin. - blood pressure control. - Check a lipid profile and hemoglobin A1c. - Headache medications as needed. - Carotid duplex and echo pending. Hypertension Systolic blood pressure was quite elevated in the emergency department which could've contributed to the patient's word finding difficulty. - Resume diltiazem and lisinopril. Adjust medications as needed. - Vasotec as needed. UTI UA indicative of infection. May be contributing to the patient's presentation. - Continue IV Cipro. - Follow urine culture. PPx: Lovenox. Code Status Full. Discussed Condition With Pt, pt's family, Dr. Willard, nurse. Ebenezer Mae DO August 28, 2016 12:04 - Vasotec as needed. Acute kidney injury The patient is on Lasix as an outpatient. Likely prerenal. Resolved with IV fluids. - hold Lasix. - d/c IV fluids. - Trend BMP as needed and avoid nephrotoxic agents. PPx: Per orthopedic surgery. Ebenezer Mae DO August 28, 2016 12:04
[2016-08-28] MEDS ORDERED: ENALAPRILAT 1.25 MG/ML VIAL IV PUSH PRN (12:30)
[2016-08-28] MEDS ORDERED: ACETAMIN 325 MG/BUTALBITAL 50 MG/CAFFEINE 40 MG TAB PO PRN (12:30)
[2016-08-28] MEDS ORDERED: ENOXAPARIN SODIUM 30 MG/0.3 ML SYRINGE SQ SCH (13:00)
[2016-08-28 13:22] VITALS: BP 179/102; PULSE 82; RESP 15; O2SAT 98
[2016-08-28] MEDS ORDERED: LISINOPRIL 10 MG TAB PO ONE (13:30)
[2016-08-28 14:00] VITALS: BP 146/72; PULSE 72; RESP 15
[2016-08-28 16:31] LABS: HDL CHOLESTEROL 66.9 MG/DL (40.0-60.0); LDL CHOLESTEROL 78 MG/DL (0-99)
[2016-08-28 16:33] VITALS: BP 151/79; PULSE 74; RESP 18; TEMP 97.3; O2SAT 99
--- NOTE | 2016-08-28 16:39 | EC ---
Study Study Date:08/28/2016 STUDY CONCLUSIONS SUMMARY - Procedure narrative: Transthoracic echocardiography. Image quality was fair. Scanning was performed from the parasternal, apical, and subcostal acoustic windows. - Left ventricle: The cavity size was normal. Wall thickness was normal. Systolic function was normal. The estimated ejection fraction was in the range of 55% to 60%. Although no diagnostic regional wall motion abnormality was identified, this possibility cannot be completely excluded on the basis of this study. - Mitral valve: Mildly calcified annulus. - Tricuspid valve: Mild regurgitation. - Pulmonary arteries: PA peak pressure: 38mm Hg (S). If LV function is below 40, please consider prescribing an ACEI or ARB or document rationale for non-use. PROCEDURE DATA STUDY STATUS: Elective. Procedure: Transthoracic echocardiography. Image quality was fair. Scanning was performed from the parasternal, apical, and subcostal acoustic windows. Study completion: The patient tolerated the procedure well. Transthoracic echocardiography. M-mode, complete 2D, complete spectral Doppler, and color Doppler. Height: Height: 66in. Weight: Weight: 129.7lb. Body mass index: BMI: 21kg/m^2. Body surface area: BSA: 1.67m^2. Patient status: Inpatient. CARDIAC ANATOMY LEFT VENTRICLE: The cavity size was normal. Wall thickness was normal. Systolic function was normal. The estimated ejection fraction was in the range of 55% to 60%. Although no diagnostic regional wall motion abnormality was identified, this possibility cannot be completely excluded on the basis of this study. AORTIC VALVE: Trileaflet; normal thickness leaflets. Doppler: Transvalvular velocity was within the normal range. There was no stenosis. No regurgitation. Valve area: 2.42cm^2 (Vmax). Indexed valve area: 1.45cm^2/m^2 (Vmax). AORTA: Aortic root: The aortic root was normal in size. MITRAL VALVE: Mildly calcified annulus. Doppler: Transvalvular velocity was within the normal range. There was no evidence for stenosis. No regurgitation. LEFT ATRIUM: The atrium was normal in size. RIGHT VENTRICLE: The cavity size was normal. Wall thickness was normal. PULMONIC VALVE: Doppler: Transvalvular velocity was within the normal range. There was no evidence for stenosis. No regurgitation. TRICUSPID VALVE: Structurally normal valve. Doppler: Transvalvular velocity was within the normal range. Mild regurgitation. PULMONARY ARTERY: The main pulmonary artery was normal-sized. RIGHT ATRIUM: The atrium was normal in size. PERICARDIUM: There was no pericardial effusion. SYSTEMIC VEINS: Inferior vena cava: The vessel was normal in size. Patient weight: 129.7lb _Ejection fraction:_ 65-75% _Fractional shortening:_ 32% up to 5Kg 5-11.5Kg 11.6-22.9Kg 23-45Kg 45-57Kg Aortic Root 7-13 <17 13-22 17-27 17-27 LA diam 6-13 <23 24-38 33-47 37-40 RVID 10-17 7-15 7-15 7-18 8-17 LVIDd 12-22 <32 24-38 33-47 37-40 LVPW 2-4 3-6 5-7 6-8 7-8 IVS 2-4 3-6 5-7 6-8 7-8 BASIC MEASUREMENTS ADULT NORMAL Left ventricle LV internal dimension, ED, chordal 44 mm 43-52 level, PLAX LV internal dimension, ES, chordal 31.4 mm 23-38 level, PLAX Fractional shortening, chordal level, *29 % >29 PLAX LV posterior wall thickness, ED 10.7 mm IVS/LVPW ratio, ED 1.04 <1.3 Ventricular septum Septal thickness, ED 11.1 mm Aortic valve Leaflet separation 20 mm 15-26 BASIC MEASUREMENTS ADULT NORMAL Aortic valve Leaflet separation 20 mm 15-26 Aorta Root diameter, ED 30 mm 20-37 Left atrium Anterior-posterior dimension, ES 26 mm 19-40 Anterior-posterior dimension index, ES 1.56 cm/m^2 <2.2 LA/aortic root ratio 0.87 DOPPLER MEASUREMENTS ADULT NORMAL Main pulmonary artery Pressure, S *38 mm Hg =30 Aortic valve Peak velocity, S 90.9 cm/s Valve area, Vmax 2.42 cm^2 Valve area index, Vmax 1.45 cm^2/m^2 Mitral valve Peak E-wave velocity 55.8 cm/s Peak A-wave velocity 80 cm/s Deceleration time 197 ms 150-230 Peak E/A ratio 0.7 Tricuspid valve Regurgitant peak velocity 240 cm/s Peak RV-RA gradient, S 23 mm Hg Maximal regurgitant velocity 240 cm/s Systemic veins Estimated CVP 10 mm Hg Right ventricle RV pressure, S *42 mm Hg <30 Pulmonic valve Peak velocity, S 99.1 cm/s LEGEND: Mean values are shown as u=mean value. Asterisk (*) saha values outside specified normal range. Prepared and signed by Earl Guerra [id number]
[2016-08-28 17:39] LABS: HEMOGLOBIN A1a 1.1 %; HEMOGLOBIN A1b 0.8 %; HEMOGLOBIN Ao 85.2 %; HEMOGLOBIN F 0.9 %; HEMOGLOBIN LA1C 2.1 %; HEMOGLOBIN P3 5.4 %
--- NOTE | 2016-08-28 18:24 | RADHPO ---
EXAM DATE/TIME: 08/28/2016 17:54 [facility] COMPARISON: No previous studies available for comparison. INDICATIONS : Transischemic attack. Cephalgia. MEDICAL HISTORY : Cardiovascular disease. Cerebrovascular disease. Hypertension. SURGICAL HISTORY : Cholecystectomy. Hysterectomy. ENCOUNTER: Initial ACUITY: 1 day PAIN SCORE: 2/10 LOCATION: Bilateral neck PEAK SYSTOLIC VELOCITIES (cm/sec): ICA/CCA RATIO: Right: 1.5 Left: 1.2 ICA: Right: 93 Left: 94 CCA: Right: 62 Left: 81 ECA: Right: 54 Left: 84 VERTEBRAL: Right: 38 antegrade Left: 56 antegrade Elevated flow velocities and ICA/CCA ratios have been found to correlate with increased degrees of vessel stenosis, calculated as percentage of diameter relative to a normal segment of distal ICA/CCA FINDINGS: RIGHT CAROTID: No significant stenosis is visualized. Mild plaquing is present. The waveforms are within normal rodriges its. LEFT CAROTID: No significant stenosis is visualized. Mild plaquing is present. The waveforms are within normal limi ts. VERTEBRAL ARTERIES: Antegrade flow is seen in both vertebral arteries. MISCELLANEOUS: None. CONCLUSION: Mild bilateral plaque with less than 40% diameter stenosis. Ebenezer Gonzalez MD on August 28, 2016 at 18:20 Board Certified Radiologist. This report was verified electronically.
[2016-08-28 20:00] VITALS: BP 157/90; PULSE 73; PULSE 84; RESP 20; TEMP 98; O2SAT 97
[2016-08-28] MEDS: DOCUSATE SODIUM 100 MG CAP PO SCH (22:01)
[2016-08-28] MEDS: SODIUM CHLORIDE 0.9% FLUSH 10 ML FLUSH IV FLUSH SCH (22:01)
[2016-08-29] VITALS: BP 144/79; PULSE 70; RESP 20; TEMP 96.8; O2SAT 98
[2016-08-29] MEDS ORDERED: CIPROFLOXACIN 200 MG PREMIX 100 ML IV SCH
[2016-08-29 04:00] VITALS: BP 156/91; PULSE 71; RESP 18; TEMP 97.4; O2SAT 97
[2016-08-29] MEDS ORDERED: LEVOTHYROXINE SODIUM 50 MCG TAB PO SCH (06:00)
[2016-08-29 06:45] LABS: AUTOMATED NEUTROPHIL # 2.1 TH/MM3 (1.8-7.7); BASOPHIL % 0.8 % (0.0-2.0); EOSINOPHIL # 0.3 TH/MM3 (0-0.4); HEMO FLAGS DIFF FINAL; LYMPHOCYTE # 1.4 TH/MM3 (1.0-4.8); MEAN CELL VOLUME 87.5 FL (80.0-100.0); MEAN CORPUSCULAR HEMOGLOBIN 29.7 PG (27.0-34.0); NEUT % 50.2 % (16.0-70.0); PLATELET COUNT 235 TH/MM3 (150-450); RED BLOOD COUNT 4.22 MIL/MM3 (4.00-5.30); RED CELL DISTRIBUTION WIDTH 14.7 % (11.6-17.2); WHITE BLOOD COUNT 4.2 TH/MM3 (4.0-11.0)
[2016-08-29 06:54] LABS: POTASSIUM 3.6 MEQ/L (3.5-5.1)
[2016-08-29 07:00] LABS: BICARBONATE 25.3 MEQ/L (21.0-32.0)
[2016-08-29 08:00] VITALS: BP 142/95; PULSE 126; RESP 21; TEMP 97.2; O2SAT 96
[2016-08-29] MEDS ORDERED: ASPIRIN 81 MG CHEW TAB CHEW SCH (09:00)
[2016-08-29] MEDS ORDERED: LISINOPRIL 20 MG TAB PO SCH (09:00)
[2016-08-29] MEDS ORDERED: DILTIAZEM-CD 180 MG CAP ER PO SCH (09:00)
[2016-08-29] MEDS ORDERED: PANTOPRAZOLE SOD 40 MG DELAYED RELEASE TAB PO SCH (09:00)
[2016-08-29] MEDS: DOCUSATE SODIUM 100 MG CAP PO SCH (09:00)
[2016-08-29] MEDS: SODIUM CHLORIDE 0.9% FLUSH 10 ML FLUSH IV FLUSH SCH (09:00)
[2016-08-29] MEDS ORDERED: LISINOPRIL 10 MG TAB PO SCH (09:00)
[2016-08-29] MEDS ORDERED: LISI-515 PO (10:13)
[2016-08-29] MEDS ORDERED: BUTATAB6 PO (10:13)
--- NOTE | 2016-08-29 10:13 | HHI.DCPOC ---
Discharge Care Plan Diagnosis: (1) UTI (urinary tract infection) (2) TIA (transient ischemic attack) (3) Hypertension (4) Complicated migraine Goals to Promote Your Health * To prevent worsening of your condition and complications * To maintain your health at the optimal level Directions to Meet Your Goals Take your medications as prescribed Follow your dietary instruction Follow activity as directed Keep your appointments as scheduled Take your immunizations and boosters as scheduled If your symptoms worsen call your PCP, if no PCP go to Urgent Care Center or Emergency Room Smoking is Dangerous to Your Health. Avoid second hand smoke Call the 24-hour hour crisis hotline for domestic abuse at Ebenezer Mae DO August 29, 2016 10:13
--- NOTE | 2016-08-29 10:15 | HHI.FF ---
Face to Face Verification Diagnosis: (1) Complicated migraine (2) Hypertension (3) UTI (urinary tract infection) (4) TIA (transient ischemic attack) Physical Therapy Order: Evaluate and Treat, Improve ambulation, Strength and gait training Home Health Nursing Order: Medical education Medication education-adverse effect Nursing assessment with vital signs I have seen patient Sebastian Rodriguez on 08/29/16. My clinical findings support the need for the requested home health care services because: Deconditioned w/ increased weakness I certify that my clinical findings support that this patient is homebound because: Unsteady gait/balance Ebenezer Mae DO August 29, 2016 10:15
[2016-08-29] MEDS ORDERED: CIPR250T2 PO (10:17)
--- NOTE | 2016-08-29 10:21 | HHI.PR ---
Subjective Remarks The patient was resting comfortably in bed. She wanted to go home. She had no acute complaints. She has had no further symptoms since being in the hospital. Her headache is resolved. Objective Vitals Vital Signs Date Time Temp Pulse Resp B/P Pulse Ox O2 Delivery O2 Flow Rate FiO2 08/29/16 04:00 97.4 71 18 156/91 97 08/29/16 00:00 96.8 70 20 144/79 98 08/28/16 20:00 73 08/28/16 20:00 98.0 84 20 157/90 97 08/28/16 16:33 97.3 74 18 151/79 99 08/28/16 14:00 72 15 146/72 08/28/16 13:22 82 15 179/102 98 I/O 08/28/16 08/28/16 08/28/16 08/29/16 08/29/16 08/29/16 07:00 15:00 23:00 07:00 15:00 23:00 Intake Total 240 ml 120 ml Balance 240 ml 120 ml Intake Oral 240 ml 120 ml # Voids 3 2 2 # Bowel Movements 0 0 Result Diagram: 08/29/16 0627 08/29/16 0627 Imaging Last Impressions Head CT 08/28/16 1010 Signed Impressions: Service Date/Time: Sunday, August 28, 2016 10:20 - CONCLUSION: No acute intracranial findings Randall Saleem MD Chest X-Ray 08/28/16 1010 Signed Impressions: Service Date/Time: Sunday, August 28, 2016 10:49 - CONCLUSION: No acute cardiopulmonary disease. Fransisco De Jesus MD Carotid Artery Ultrasound 08/28/16 0000 Signed Impressions: Service Date/Time: Sunday, August 28, 2016 17:54 - CONCLUSION: Mild bilateral plaque with less than 40%% diameter stenosis. Ebenezer Gonzalez MD Objective Remarks GENERAL: Resting comfortably in bed. SKIN: Warm and dry. HEAD: Atraumatic. Normocephalic. EYES: Pupils equal and round. No scleral icterus. No injection or drainage. ENT: No nasal bleeding or discharge. Mucous membranes pink and moist. NECK: Trachea midline. No JVD. CARDIOVASCULAR: Regular rate and rhythm. No murmur appreciated. RESPIRATORY: No accessory muscle use. Clear to auscultation. Breath sounds equal bilaterally. GASTROINTESTINAL: Abdomen soft, non-tender, nondistended. Hepatic and splenic margins not palpable. MUSCULOSKELETAL: No obvious deformities. No clubbing. No cyanosis. No edema. NEUROLOGICAL: Awake and alert. No obvious cranial nerve deficits. Motor grossly within normal limits. Normal speech. PSYCHIATRIC: Appropriate mood and affect; insight and judgment normal. Medications and IVs Current Medications Medications (Trade) Dose Ordered Sig/Maddison Route Start Time Stop Time Status Last Admin (Cipro 200 Mg Premix) 100 ml @ 100 mls/hr Q12H IV 08/29/16 00:00 08/29/16 01:01 (Synthroid) 50 mcg DAILY@06 PO 08/29/16 06:00 08/29/16 06:27 (Protonix) 40 mg DAILY PO 08/29/16 09:00 (NS Flush) 2 ml UNSCH PRN IV FLUSH 08/28/16 12:00 (NS Flush) 2 ml BID IV FLUSH 08/28/16 21:00 08/28/16 22:01 (Tylenol) 650 mg Q4H PRN PO 08/28/16 12:00 (Colace) 100 mg Q12HR PO 08/28/16 21:00 08/28/16 22:01 (Senokot) 17.2 mg Q12H PRN PO 08/28/16 12:00 (Ambien) 5 mg HS PRN PO 08/28/16 12:00 (Lovenox Inj) 30 mg Q24H SQ 08/28/16 13:00 08/28/16 13:15 (Tylenol) 650 mg Q6H PRN PO 08/28/16 12:00 (Roxicodone) 5 mg Q4H PRN PO 08/28/16 12:00 (Narcan Inj) 0.4 mg UNSCH PRN IV 08/28/16 12:00 (Vasotec Inj) 1.25 mg Q6H PRN IV PUSH 08/28/16 12:30 (Fioricet 325-50-40) 1 tab Q6H PRN PO 08/28/16 12:30 (Aspirin Chew) 81 mg DAILY CHEW 08/29/16 09:00 (Cardizem Cd) 180 mg DAILY PO 08/29/16 09:00 (Prinivil) 20 mg DAILY PO 08/29/16 09:00 A/P Assessment and Plan Complicated migraine/ TIA The patient presents with word finding difficulties lasting about 5 minutes associated with a severe headache. Her symptoms have resolved at this time except for a minor headache. She does have a history of migraine. CT of the brain was unremarkable. Lipid profile and A1c WNL. Carotid duplex with less than 40% stenosis bilaterally. Echo with normal EF. - Neuro checks. - PT/ OT/ ST. - Continue aspirin. - blood pressure control. - Headache medications as needed. Hypertension Systolic blood pressure was quite elevated in the emergency department which could've contributed to the patient's word finding difficulty. - Resume diltiazem and lisinopril. Lisinopril increased to 20 mg daily. Improved. - Vasotec as needed. UTI UA indicative of infection. May be contributing to the patient's presentation. - Continue Cipro to complete a 7 day course. - Follow urine culture. PPx: Lovenox. Discharge Planning D/c home. Ebenezer Mae DO August 29, 2016 10:21
--- NOTE | 2016-08-29 17:02 | EKG ---
Date Performed: 08/28/2016 Time Performed: 10:14:46 PTAGE: 86 years EKG: Sinus rhythm with borderline 1st degree A-V block Leftward axis Possible anteroseptal infarct - age undetermined Low QRS voltages in precordial leads Abnormal ECG Compared to PREVIOUS TRACING on 05/31/2016, nonspecific T-wave changes have improved. PREVIOUS GEORGE N05/31/2016 18.48 DOCTOR: Luis Eduardo Mclaughlin Interpretating Date/Time 08/29/2016 17:01:06
== END 2016-08-29 13:08 | disposition home or self-care (01) ==
LOC: PHED 09:34 → PHEDA 11:18 → PH3A 15:08
PROVIDERS: ADMIT Hospitalist; ATTEND Hospitalist
DX: G45.9 Transient cerebral ischemic attack, unspecified (principal); G43.109 Migraine with aura, not intractable, without status migrainosus; N39.0 Urinary tract infection, site not specified; I10 Essential (primary) hypertension; E03.9 Hypothyroidism, unspecified; K21.9 Gastro-esophageal reflux disease without esophagitis; Z88.0 Allergy status to penicillin; Z88.2 Allergy status to sulfonamides; Z79.82 Long term (current) use of aspirin
CPT/HCPCS: 70450; 71010; 80048; 80053; 80061; 81001; 82948; 83036; 84484; 85025; 85610; 85730; 87040; 87077; 87086; 87186; 92523; 93005; 93306; 93880; 97110; 97116; 97162; 97166; 99285; G0378; G8987; G8988; G8989; G9162; G9163; G9164; J0744; J1650

== ENCOUNTER 2016-11-10 19:15 | Inpatient (IN) | payer MEDICARE ==
[~2016-11-10] VITALS: Ht 162.6 cm; Wt 63.3 kg
[~2016-11-10 19:15] MED LIST changes: -ASPI325T PO; +ASPI81CH CHEW; +BUTATAB6 PO; +CIPR250T2 PO; -DOCU1CAP39 PO; -ENOX40P SQ; -LATA0.002 EACH EYE; +LISI-515 PO; -NITR1CAP36 PO; -NORC5TAB PO
[2016-11-10 19:37] VITALS: BP 145/89; PULSE 122; RESP 16; TEMP 97.4
[2016-11-10 19:50] VITALS: BP 180/93; PULSE 146; RESP 22; O2SAT 98
[2016-11-10] MEDS ORDERED: ONDANSETRON HCL 4 MG/2 ML VIAL IV ONE (20:00)
[2016-11-10] MEDS ORDERED: LOPERAMIDE HCL 2 MG CAP PO ONE (20:00)
[2016-11-10] MEDS ORDERED: SODIUM CHLOR 0.9% 1000 ML INJ 1,000 ML IV SCH (20:00)
--- NOTE | 2016-11-10 20:08 | PD ---
HPI Chief Complaint: GI Complaint Time Seen by Provider: 19:27 Travel History International Travel<30 days: No Contact w/Intl Traveler<30days: No Traveled to known affect area: No History of Present Illness HPI 86-year-old woman who presents to the emergency department complaining of nausea vomiting diarrhea that started today. Her family was visiting out of town over the weekend and the grandkids just gotten over a GI illness. She states she had some abdominal pain earlier but this is resolved. She's had some chills with it as well. No blood in the emesis or stool. She describes copious watery diarrhea. She has a states she's got a little bit short of breath since the vomiting started. No chest pain. She otherwise has been feeling generally well and healthy before this. No other complaints. History Past Medical History Narrative Medical Left hip fracture Hypertension Hypothyroidism Diverticulitis GERD History of atrial fibrillation Influenza Vaccination: Yes Menopausal: Yes : 2 Para: 2 Social History Alcohol Use: Yes (Rarely) Tobacco Use: No Allergies-Medications (Allergen,Severity, Reaction): Coded Allergies: Penicillin (Verified Allergy, Severe, Anaphylaxis, 11/10/16) Sulfa (Verified Allergy, Severe, Anaphylaxis, 11/10/16) Reported Meds & Prescriptions Reported Meds & Active Scripts Active Lisinopril 20 Mg Tab 20 Mg PO DAILY Wrcwqaxkfn-Jauqhjhfqvqzv-Jyssrymx 50-325-40 Mg Tab 1 Tab PO Q6H PRN Reported Aspirin 81 Mg Chew 81 Mg CHEW DAILY Taztia Xt (Diltiazem ER 24 HR) 180 Mg Caper 180 Mg PO DAILY K-Tab (Potassium Chloride) 20 Meq Tab 20 Meq PO DAILY Omeprazole 40 Mg Cap 40 Mg PO DAILY Levothyroxine (Levothyroxine Sodium) 50 Mcg Tab 50 Mcg PO DAILY Review of Systems Except as stated in HPI: all other systems reviewed are Neg Physical Exam Narrative GENERAL: Well-appearing 86 year-old woman, no acute distress. SKIN: Focused skin assessment warm/dry. HEAD: Atraumatic. Normocephalic. EYES: Pupils equal and round. No scleral icterus. No injection or drainage. ENT: No nasal bleeding or discharge. Mucous membranes pink and moist. NECK: Trachea midline. No JVD. CARDIOVASCULAR: Heart rapid. A little bit irregular. No appreciable murmurs. RESPIRATORY: No accessory muscle use. Clear to auscultation. Breath sounds equal bilaterally. GASTROINTESTINAL: Abdomen soft, non-tender, nondistended. Hepatic and splenic margins not palpable. MUSCULOSKELETAL: No obvious deformities. No clubbing. No cyanosis. No edema. NEUROLOGICAL: Awake and alert. No obvious cranial nerve deficits. Motor grossly within normal limits. Normal speech. PSYCHIATRIC: Appropriate mood and affect; insight and judgment normal. Data Data Last Documented VS Vital Signs Date Time Temp Pulse Resp B/P Pulse Ox O2 Delivery O2 Flow Rate FiO2 11/10/16 21:29 110 16 168/92 97 Room Air 11/10/16 19:37 97.4 96 Orders Complete Blood Count With Diff (11/10/16 19:53) Comprehensive Metabolic Panel (11/10/16 19:53) Iv Access Insert/Monitor (11/10/16 19:53) Chest, Single Ap (11/10/16 ) Electrocardiogram (11/10/16 ) Sodium Chlor 0.9% 1000 Ml Inj (Ns 1000 M (11/10/16 20:00) Loperamide (Imodium) (11/10/16 20:00) Ondansetron Inj (Zofran Inj) (11/10/16 20:00) Diltiazem (Cardizem) (11/10/16 21:45) Admit Order (Ed Use Only) (11/10/16 ) Pantoprazole Inj (Protonix Inj) (11/10/16 21:45) Place In Observation (11/10/16 ) Vital Signs (Adult) Q4H (11/10/16 21:45) Activity Oob With Assistance (11/10/16 21:45) Breeder Hen Service Technician / Telemetry .CONTINUOUS (11/10/16 21:45) Intake + Output ROMEO.QSHIFT (11/10/16 21:45) Diet Regular Basic (11/11/16 Breakfast) Sodium Chlor 0.9% 1000 Ml Inj (Ns 1000 M (11/10/16 21:45) Sodium Chloride 0.9% Flush (Ns Flush) (11/10/16 21:45) Sodium Chloride 0.9% Flush (Ns Flush) (11/11/16 09:00) Ondansetron Inj (Zofran Inj) (11/10/16 21:45) Comprehensive Metabolic Panel (11/11/16 06:00) Complete Blood Count With Diff (11/11/16 06:00) Scd Bilateral/Knee High ROMEO.BID (11/10/16 21:45) Jamie Bilateral/Knee High ROMEO.QSHIFT (11/10/16 21:45) Acetaminophen (Tylenol) (11/10/16 21:45) Acetamin-Hydrocod 325-5 Mg ([place] 5-325 (11/10/16 21:45) Morphine Inj (Morphine Inj) (11/10/16 21:45) Docusate Sodium-Senna (Fatemeh-Colace) (11/11/16 09:00) Magnesium Hydroxide Liq (Milk Of Magnesi (11/10/16 21:45) Sennosides (Senokot) (11/10/16 21:45) Bisacodyl Supp (Dulcolax Supp) (11/10/16 21:45) Lactulose Liq (Lactulose Liq) (11/10/16 21:45) Aspirin Chew (Aspirin Chew) (11/11/16 09:00) Diltiazem Cd (Cardizem Cd) (11/11/16 09:00) Labs Laboratory Tests Test 11/10/16 19:58 White Blood Count 7.0 TH/MM3 Red Blood Count 4.87 MIL/MM3 Hemoglobin 14.6 GM/DL Hematocrit 43.2 % Mean Corpuscular Volume 88.7 FL Mean Corpuscular Hemoglobin 29.9 PG Mean Corpuscular Hemoglobin 33.7 % Concent Red Cell Distribution Width 13.2 % Platelet Count 230 TH/MM3 Mean Platelet Volume 8.5 FL Neutrophils (%) (Auto) 87.8 % Lymphocytes (%) (Auto) 5.1 % Monocytes (%) (Auto) 4.0 % Eosinophils (%) (Auto) 1.0 % Basophils (%) (Auto) 2.1 % Neutrophils # (Auto) 6.1 TH/MM3 Lymphocytes # (Auto) 0.4 TH/MM3 Monocytes # (Auto) 0.3 TH/MM3 Eosinophils # (Auto) 0.1 TH/MM3 Basophils # (Auto) 0.1 TH/MM3 CBC Comment DIFF FINAL Differential Comment Sodium Level 141 MEQ/L Potassium Level 4.2 MEQ/L Chloride Level 107 MEQ/L Carbon Dioxide Level 24.9 MEQ/L Anion Gap 9 MEQ/L Blood Urea Nitrogen 24 MG/DL Creatinine 1.00 MG/DL Estimat Glomerular Filtration 52 ML/MIN Rate Random Glucose 123 MG/DL Calcium Level 9.0 MG/DL Total Bilirubin 0.6 MG/DL Aspartate Amino Transf 21 U/L (AST/SGOT) Alanine Aminotransferase 14 U/L (ALT/SGPT) Alkaline Phosphatase 96 U/L Total Protein 8.4 GM/DL Albumin 4.2 GM/DL [facility] Medical Decision Making Medical Screen Exam Complete: Yes Emergency Medical Condition: Yes Interpretation(s) My review of EKG: A. fib at a rate of 122, leftward axis, nonspecific lateral T- wave abnormalities. LABS: CBC is unremarkable. CMP remarkable for mildly elevated BUN. Chest x-ray negative Differential Diagnosis Dehydration, acute gastroenteritis, gastritis, enteritis, colitis, diverticulitis, other Narrative Course Medical decision making Is an 78 year-old woman presents emergency department with sounds like acute gastroenteritis. Multiple sick family members earlier. We'll check labs, EKG, chest x-ray, IV fluids, reassess. FINAL: 86 year-old woman with gastroenteritis, dehydration, with A. fib RVR. We 'll give her small by mouth bump in her diltiazem. We'll continue her long- acting diltiazem as scheduled in the morning. We'll give IV fluids. I spoke with Dr. mckeon, will admit patient. Diagnosis Primary Impression: Gastroenteritis Additional Impression: A-fib Admitting Information Admitting Physician Requests: Admit Jay Willard MD Nov 10, 2016 20:08
[2016-11-10 20:11] VITALS: BP 155/97; PULSE 125; O2SAT 97
[2016-11-10 20:18] LABS: CHLORIDE 107 MEQ/L (98-107); SODIUM (NA) 141 MEQ/L (136-145)
[2016-11-10 20:22] LABS: ANION GAP 9 MEQ/L (5-15); BICARBONATE 24.9 MEQ/L (21.0-32.0); BLOOD UREA NITROGEN 24 MG/DL (7-18)
[2016-11-10 20:25] LABS: ALT (GPT) 14 U/L (10-53); AST (GOT) 21 U/L (15-37); AUTOMATED NEUTROPHIL # 6.1 TH/MM3 (1.8-7.7); BASOPHIL # 0.1 TH/MM3 (0-0.2); BASOPHIL % 2.1 % (0.0-2.0); EOSINOPHIL # 0.1 TH/MM3 (0-0.4); GLOMERULAR FILTRATION RATE 52 ML/MIN (>89); HEMATOCRIT 43.2 % (35.0-46.0); LYMPH % 5.1 % (9.0-44.0); LYMPHOCYTE # 0.4 TH/MM3 (1.0-4.8); MEAN CELL VOLUME 88.7 FL (80.0-100.0); MEAN CORPUSCULAR HEMOGLOBIN 29.9 PG (27.0-34.0); MEAN CORPUSCULAR HGB CONC 33.7 % (32.0-36.0); NEUT % 87.8 % (16.0-70.0); PLATELET COUNT 230 TH/MM3 (150-450); RED BLOOD COUNT 4.87 MIL/MM3 (4.00-5.30); RED CELL DISTRIBUTION WIDTH 13.2 % (11.6-17.2)
[2016-11-10 20:26] LABS: TOTAL BILIRUBIN ADULT 0.6 MG/DL (0.2-1.0)
[2016-11-10 20:27] LABS: ALKALINE PHOSPHATASE 96 U/L (45-117)
[2016-11-10 20:30] LABS: HEMO FLAGS DIFF FINAL
[2016-11-10 20:31] LABS: POTASSIUM 4.2 MEQ/L (3.5-5.1)
--- NOTE | 2016-11-10 20:38 | RADRPT ---
EXAM DATE/TIME: 11/10/2016 20:06 [facility] COMPARISON: CHEST SINGLE AP, August 28, 2016, 10:49. INDICATIONS : Shortness of breath. MEDICAL HISTORY : Hypertension. SURGICAL HISTORY : None. ENCOUNTER: Initial ACUITY: 1 day PAIN SCORE: 0/10 LOCATION: Bilateral chest FINDINGS: The lungs are clear without infiltrate, nodule, or mass. There is no appreciable pleural effusion fo r technique. Heart and mediastinum are unremarkable. CONCLUSION: No acute cardiopulmonary disease. Saeid Holder MD on November 10, 2016 at 20:36 Board Certified Radiologist. This report was verified electronically.
[2016-11-10 20:53] VITALS: BP 148/93; PULSE 115; O2SAT 97
[2016-11-10 21:29] VITALS: BP 168/92; PULSE 110; RESP 16; O2SAT 97
[2016-11-10] MEDS ORDERED: SODIUM CHLORIDE 0.9% FLUSH 10 ML FLUSH IV FLUSH PRN (21:45)
[2016-11-10] MEDS ORDERED: ACETAMINOPHEN/HYDROcodone 325 MG/5 MG TAB PO PRN (21:45)
[2016-11-10] MEDS ORDERED: BISACODYL 10 MG SUPP RECTAL PRN (21:45)
[2016-11-10] MEDS ORDERED: DILTIAZEM HCL 30 MG TAB PO ONE (21:45)
[2016-11-10] MEDS ORDERED: LACTULOSE SYRUP 20 GM/30 ML CUP PO PRN (21:45)
[2016-11-10] MEDS ORDERED: ACETAMINOPHEN 325 MG TAB PO PRN (21:45)
[2016-11-10] MEDS ORDERED: SENNOSIDES 8.6 MG TAB PO PRN (21:45)
[2016-11-10] MEDS ORDERED: MAGNESIUM HYDROXIDE SUSP 30 ML CUP PO PRN (21:45)
[2016-11-10] MEDS ORDERED: MORPHINE SULFATE 8 MG/ML INJ IV PUSH PRN (22:00)
[2016-11-10] MEDS: PANTOPRAZOLE SODIUM 40 MG VIAL IV PUSH SCH (22:06)
[2016-11-10] MEDS: SODIUM CHLOR 0.9% 1000 ML INJ 1,000 ML IV SCH (22:06)
[2016-11-10 23:10] VITALS: BP 168/92; PULSE 110; RESP 16; TEMP 97.8; O2SAT 97
[2016-11-11 01:23] VITALS: BP 162/90; PULSE 97; RESP 18; TEMP 97.5; O2SAT 98
[2016-11-11] MEDS: ONDANSETRON HCL 4 MG/2 ML VIAL IVP PRN ×2 (01:41→18:50)
[2016-11-11 04:00] VITALS: BP 160/89; PULSE 98; RESP 16; TEMP 98; O2SAT 97
[2016-11-11 06:41] LABS: AUTOMATED NEUTROPHIL # 6.5 TH/MM3 (1.8-7.7); BASOPHIL % 0.2 % (0.0-2.0); EOSINOPHIL % 0.1 % (0.0-4.0); HEMATOCRIT 38.8 % (35.0-46.0); HEMO FLAGS DIFF FINAL; LYMPH % 2.5 % (9.0-44.0); LYMPHOCYTE # 0.2 TH/MM3 (1.0-4.8); MEAN CELL VOLUME 90.5 FL (80.0-100.0); MEAN CORPUSCULAR HGB CONC 34.3 % (32.0-36.0); NEUT % 93.2 % (16.0-70.0); PLATELET COUNT 179 TH/MM3 (150-450); RED BLOOD COUNT 4.29 MIL/MM3 (4.00-5.30); RED CELL DISTRIBUTION WIDTH 13.3 % (11.6-17.2)
[2016-11-11 07:36] LABS: ALKALINE PHOSPHATASE 119 U/L (45-117); ALT (GPT) 183 U/L (10-53); ANION GAP 10 MEQ/L (5-15); AST (GOT) 417 U/L (15-37); BICARBONATE 24.1 MEQ/L (21.0-32.0); BLOOD UREA NITROGEN 20 MG/DL (7-18); CHLORIDE 110 MEQ/L (98-107); GLOMERULAR FILTRATION RATE 71 ML/MIN (>89); POTASSIUM 3.3 MEQ/L (3.5-5.1); SODIUM (NA) 144 MEQ/L (136-145)
[2016-11-11] MEDS: SODIUM CHLOR 0.9% 1000 ML INJ 1,000 ML IV SCH ×2 (07:45→17:38)
[2016-11-11 08:00] VITALS: BP 167/88; PULSE 86; RESP 18; TEMP 96.5; O2SAT 99
[2016-11-11] MEDS: DOCUSATE SODIUM 50 MG/SENNA 8.6 MG TAB PO SCH ×2 (09:00→21:06)
[2016-11-11] MEDS: SODIUM CHLORIDE 0.9% FLUSH 10 ML FLUSH IV FLUSH SCH ×2 (09:00→21:06)
[2016-11-11] MEDS: ASPIRIN 81 MG CHEW TAB CHEW SCH (09:36)
[2016-11-11] MEDS: DILTIAZEM-CD 180 MG CAP ER PO SCH (09:36)
[2016-11-11] MEDS: PANTOPRAZOLE SODIUM 40 MG VIAL IV PUSH SCH ×2 (10:00→21:06)
[2016-11-11] MEDS ORDERED: POTASSIUM CHLORIDE 20 MEQ PWD PACKET PO ONE (10:30)
[2016-11-11 12:00] VITALS: BP 180/87; PULSE 89; RESP 20; TEMP 97.8; O2SAT 96
--- NOTE | 2016-11-11 12:12 | HHI.HP ---
[facility] Unknown Admission Diagnosis gastroenteritis, dehydration, A. fib RVR Diagnoses: Chief Complaint: Abdominal pain Travel History International Travel<30 Days: No Contact w/Intl Traveler <30 Da: No Traveled to Known Affected Are: No History of Present Illness This patient is a very pleasant 86-year-old female with remote history of diverticulitis. Apparently her grandchildren had some sort of gastrointestinal infection and they were visiting over the weekend. Patient says that since yesterday she has had increased abdominal discomfort and pain. She was taking milk with some improvement. She reports nausea and vomiting associated with this 10 out of 10 abdominal pain. No was helping. She also had taken Zantac in the past for reflux and for intestinal discomfort. She has not taken this in a while. Patient has had increased blood pressures and pain. Patient's pain was relieved with morphine and also in the emergency room. Patient notes no fevers or chills. She has had watery nonbloody diarrhea and nonbloody emesis. Otherwise she has been pretty healthy. Patient is admitted to the hospital for further evaluation Review of Systems Constitutional: DENIES: Diaphoretic episodes, Fatigue, Fever, Weight gain, Weight loss, Chills, Dizziness, Change in appetite, Night Sweats Endocrine: DENIES: Abnorml menstrual pattern, Heat/cold intolerance, Polydipsia , Polyuria, Polyphagia Eyes: DENIES: Blurred vision, Diplopia, Eye inflammation, Eye pain, Vision loss , Photosensitivity, Double Vision Ears, nose, mouth, throat: DENIES: Tinnitus, Hearing loss, Vertigo, Nasal discharge, Oral lesions, Throat pain, Hoarseness, Ear Pain, Running Nose, Epistaxis, Sinus Pain, Toothache, Odynophagia Respiratory: DENIES: Apneas, Cough, Snoring, Wheezing, Hemoptysis, Sputum production, Shortness of breath Cardiovascular: DENIES: Chest pain, Palpitations, Syncope, Dyspnea on Exertion , PND, Lower Extremity Edema, Orthopnea, Claudication Gastrointestinal: COMPLAINS OF: Abdominal pain, Diarrhea, Nausea, Vomiting, DENIES: Black stools, Bloody stools, Constipation, Difficulty Swallowing, Anorexia Genitourinary: DENIES: Abnormal vaginal bleeding, Dysmenorrhea, Dyspareunia, Sexual dysfunction, Urinary frequency, Urinary incontinence, Urgency, Hematuria , Dysuria, Nocturia, Vaginal discharge Musculoskeletal: COMPLAINS OF: Joint pain, DENIES: Muscle aches, Stiffness, Joint Swelling, Back pain, Neck pain Integumentary: DENIES: Abnormal pigmentation, Pruritus, Rash, Nail changes, Breast masses, Breast skin changes, Nipple discharge Hematologic/lymphatic: DENIES: Bruising, Lymphadenopathy Immunologic/allergic: DENIES: Eczema, Urticaria Neurologic: DENIES: Abnormal gait, Headache, Localized weakness, Paresthesias, Seizures, Speech Problems, Tremor, Poor Balance Psychiatric: DENIES: Anxiety, Confusion, Mood changes, Depression, Hallucinations, Agitation, Suicidal Ideation, Homicidal Ideation, Delusions Past Family Social History Past Medical History Hypertension GERD Diverticulitis Atrial fibrillation Hypothyroidism Past Surgical History Cataracts Hysterectomy Cholecystectomy Reported Medications Reviewed in the medical record, nothing new Allergies: Coded Allergies: Penicillin (Verified Allergy, Severe, Anaphylaxis, 11/10/16) Sulfa (Verified Allergy, Severe, Anaphylaxis, 11/10/16) Active Ordered Medications Reviewed in the medical record Family History All of her family is "healthy " Social History No current tobacco or alcohol dependency, lives with her family Physical Exam Vital Signs Vital Signs Date Time Temp Pulse Resp B/P Pulse Ox O2 Delivery O2 Flow Rate FiO2 11/11/16 08:00 96.5 86 18 167/88 99 11/11/16 04:00 98.0 98 16 160/89 97 11/11/16 01:23 97.5 97 18 162/90 98 11/10/16 23:10 97.8 110 16 168/92 97 11/10/16 21:29 110 16 168/92 97 Room Air 11/10/16 20:53 115 148/93 97 Room Air 11/10/16 20:11 125 155/97 97 Room Air 11/10/16 19:50 146 22 180/93 98 Room Air 11/10/16 19:37 97.4 122 16 145/89 96 Physical Exam GENERAL: This is a well-nourished, well-developed patient, ill appearing with 4/ 10 pain SKIN: No rashes, ecchymoses or lesions. Cool and dry. HEAD: Atraumatic. Normocephalic. No temporal or scalp tenderness. EYES: Pupils equal round and reactive. Extraocular motions intact. No scleral icterus. No injection or drainage. ENT: Nose without bleeding, purulent drainage or septal hematoma. Throat without erythema, tonsillar hypertrophy or exudate. Uvula midline. Airway patent. NECK: Trachea midline. No JVD or lymphadenopathy. Supple, nontender, no meningeal signs. CARDIOVASCULAR: Regular rate and rhythm without murmurs, gallops, or rubs. RESPIRATORY: Clear to auscultation. Breath sounds equal bilaterally. No wheezes , rales, or rhonchi. GASTROINTESTINAL: Abdomen soft, epigastric area is tender, nondistended. No hepato-splenomegaly, or palpable masses. No guarding. MUSCULOSKELETAL: Extremities without clubbing, cyanosis, or edema. No joint tenderness, effusion, or edema noted. No calf tenderness. Negative Homans sign bilaterally. NEUROLOGICAL: Awake and alert. Cranial nerves II through XII intact. Motor and sensory grossly within normal limits. Five out of 5 muscle strength in all muscle groups. Normal speech. Laboratory Laboratory Tests Test 11/10/16 11/11/16 19:58 06:00 White Blood Count 7.0 7.0 Red Blood Count 4.87 4.29 Hemoglobin 14.6 13.3 Hematocrit 43.2 38.8 Mean Corpuscular Volume 88.7 90.5 Mean Corpuscular Hemoglobin 29.9 31.0 Mean Corpuscular Hemoglobin 33.7 34.3 Concent Red Cell Distribution Width 13.2 13.3 Platelet Count 230 179 Mean Platelet Volume 8.5 8.4 Neutrophils (%) (Auto) 87.8 93.2 Lymphocytes (%) (Auto) 5.1 2.5 Monocytes (%) (Auto) 4.0 4.0 Eosinophils (%) (Auto) 1.0 0.1 Basophils (%) (Auto) 2.1 0.2 Neutrophils # (Auto) 6.1 6.5 Lymphocytes # (Auto) 0.4 0.2 Monocytes # (Auto) 0.3 0.3 Eosinophils # (Auto) 0.1 0.0 Basophils # (Auto) 0.1 0.0 CBC Comment DIFF FINAL DIFF FINAL Differential Comment Sodium Level 141 144 Potassium Level 4.2 3.3 Chloride Level 107 110 Carbon Dioxide Level 24.9 24.1 Anion Gap 9 10 Blood Urea Nitrogen 24 20 Creatinine 1.00 0.77 Estimat Glomerular Filtration 52 71 Rate Random Glucose 123 174 Calcium Level 9.0 8.2 Total Bilirubin 0.6 1.0 Aspartate Amino Transf 21 417 (AST/SGOT) Alanine Aminotransferase 14 183 (ALT/SGPT) Alkaline Phosphatase 96 119 Total Protein 8.4 7.0 Albumin 4.2 3.2 Result Diagram: 11/11/16 0600 11/11/16 0600 Imaging EKG on my review shows atrial fibrillation with rapid ventricular response Assessment and Plan Problem List: (1) A-fib ICD Code: I48.91 Status: Chronic Plan: on diltiazem controlled Replace hypokalemia, check magnesium (2) Hypertension ICD Code: I10 Status: Chronic Plan: elevated likely due to pain continue home meds (3) Abdominal pain ICD Code: R10.9 Status: Acute Plan: worrisome for diverticulitis add cipro/flagyl/probiotic IVF CT ab pelvis pending cont iv morphine (4) LFT elevation ICD Code: R79.89 Status: Acute Plan: follow up ct abd pelvis no hx of hepatitis per patient Physician Certification 2 Midnight Certification Type: Admission for Inpatient Services Order for Inpatient Services The services are ordered in accordance with Medicare regulations or non- Medicare payer requirements, as applicable. In the case of services not specified as inpatient-only, they are appropriately provided as inpatient services in accordance with the 2-midnight benchmark. Estimated LOS (days): 3 3 days is the estimated time the patient will need to remain in the hospital, assuming treatment plan goals are met and no additional complications. Post-Hospital Plan: Home Problem Qualifiers (1) Abdominal pain: Qualified Code: R10.13 - Epigastric pain Katarina Singh MD Nov 11, 2016 12:12
[2016-11-11] MEDS: LACTOBACILLUS ACIDOPHILUS TAB PO SCH ×2 (12:25→17:57)
[2016-11-11] MEDS: LEVOTHYROXINE SODIUM 50 MCG TAB PO SCH (12:25)
[2016-11-11] MEDS: LISINOPRIL 20 MG TAB PO SCH (12:25)
[2016-11-11] MEDS ORDERED: cloNIDine HCL 0.1 MG TAB PO PRN (13:45)
[2016-11-11] MEDS ORDERED: DIATRIZOATE MEGLUM/DIATRIZOATE SOD 9 ML CUP PO ONE (14:00)
[2016-11-11] MEDS: metroNIDAZOLE 500 MG INJ 100 ML IV SCH ×2 (15:44→21:06)
[2016-11-11] MEDS: CIPROFLOXACIN 400 MG PREMIX 200 ML IV SCH (15:44)
[2016-11-11 16:00] VITALS: BP 136/75; PULSE 71; RESP 20; TEMP 98.1; O2SAT 96
--- NOTE | 2016-11-11 16:36 | RADRPT ---
EXAM DATE/TIME: 11/11/2016 16:13 [facility] COMPARISON: CT ABDOMEN & PELVIS W CONTRAST, April 19, 2014, 13:24. CT ABDOMEN & PELVIS W CONTRAST, January, 12:38. INDICATIONS : Mid abdominal pain. ORAL CONTRAST: Prescribed oral contrast ingested. RADIATION DOSE: 6.59 CTDIvol (mGy) MEDICAL HISTORY : Gastroesophageal reflux disease. Hernia, hiatal. Hernia, inguinal. SURGICAL HISTORY : Cholecystectomy. Hysterectomy.Colon resection. ENCOUNTER: Initial ACUITY: 2 days PAIN SCALE: 5/10 LOCATION: abdomen TECHNIQUE: Volumetric scanning of the abdomen and pelvis was performed. Using automated exposure control and ad justment of the mA and/or kV according to patient size, radiation dose was kept as low as reasonably achievable to obtain optimal diagnostic quality images. DICOM format image data is available electro nically for review and comparison. FINDINGS: LOWER LUNGS: The visualized lower lungs are clear. Minimal lower lobe atelectasis LIVER: There is biliary tree dilatation the liver. No focal liver masses are identified. Numerous cholecyste ctomy clips. SPLEEN: Normal size without lesion. Calcified granulomas. Splenic arterial calcifications. PANCREAS: Within normal limits. KIDNEYS: Normal in size and shape. There is no mass, stone, or hydronephrosis. ADRENAL GLANDS: Within normal limits. VASCULAR: There is no aortic aneurysm. BOWEL/MESENTERY: The patient's had a right hemicolectomy. There is a mildly distended small bowel and transverse colon . The stomach, small bowel, and colon demonstrate no acute abnormality. There is no free intraperi toneal air or fluid. Sigmoid diverticulosis ABDOMINAL WALL: Within normal limits. RETROPERITONEUM: There is no lymphadenopathy. BLADDER: No wall thickening or mass. REPRODUCTIVE: Within normal limits. INGUINAL: There is no lymphadenopathy or hernia. MUSCULOSKELETAL: Within normal limits for patient age. CONCLUSION: Status post right hemicolectomy. Mildly distended small and large bowel without evidence of obstructi on. Diverticulosis of the sigmoid colon. Status post cholecystectomy with expected intrahepatic bilia ry tree dilatation. Jay Garner MD on November 11, 2016 at 16:31 Board Certified Radiologist. This report was verified electronically.
[2016-11-11 20:00] VITALS: BP 149/77; PULSE 66; RESP 18; TEMP 96.1; O2SAT 98
[2016-11-12] VITALS: BP 142/79; PULSE 70; RESP 16; TEMP 97.7; O2SAT 93
[2016-11-12] MEDS: CIPROFLOXACIN 400 MG PREMIX 200 ML IV SCH (00:17)
[2016-11-12] MEDS: SODIUM CHLOR 0.9% 1000 ML INJ 1,000 ML IV SCH (02:47)
[2016-11-12] MEDS: metroNIDAZOLE 500 MG INJ 100 ML IV SCH (05:00)
[2016-11-12 06:29] LABS: POTASSIUM 3.4 MEQ/L (3.5-5.1)
[2016-11-12 06:53] LABS: BICARBONATE 24.6 MEQ/L (21.0-32.0)
[2016-11-12 08:00] VITALS: BP 166/86; PULSE 80; RESP 19; TEMP 98.4; O2SAT 94
[2016-11-12] MEDS: DILTIAZEM-CD 180 MG CAP ER PO SCH (08:54)
[2016-11-12] MEDS: SODIUM CHLORIDE 0.9% FLUSH 10 ML FLUSH IV FLUSH SCH ×2 (08:54→21:00)
[2016-11-12] MEDS: ASPIRIN 81 MG CHEW TAB CHEW SCH (08:54)
[2016-11-12] MEDS: LEVOTHYROXINE SODIUM 50 MCG TAB PO SCH (08:54)
[2016-11-12] MEDS: PANTOPRAZOLE SODIUM 40 MG VIAL IV PUSH SCH (08:54)
[2016-11-12] MEDS: DOCUSATE SODIUM 50 MG/SENNA 8.6 MG TAB PO SCH ×2 (08:55→21:00)
[2016-11-12] MEDS: LISINOPRIL 20 MG TAB PO SCH (08:55)
[2016-11-12] MEDS: LACTOBACILLUS ACIDOPHILUS TAB PO SCH ×3 (08:55→17:31)
[2016-11-12 10:20] VITALS: PULSE 78
--- NOTE | 2016-11-12 11:21 | HHI.PR ---
Subjective Remarks Patient seen and evaluated today in follow-up for abdominal pain with enteritis. Doing much better. LFTs increased. Potassium 3.4. Patient tolerating diet Objective Vitals Vital Signs Date Time Temp Pulse Resp B/P Pulse Ox O2 Delivery O2 Flow Rate FiO2 11/12/16 08:00 98.4 80 19 166/86 94 11/12/16 00:00 97.7 70 16 142/79 93 11/11/16 20:00 96.1 66 18 149/77 98 11/11/16 20:00 66 11/11/16 16:00 98.1 71 20 136/75 96 11/11/16 15:12 16 11/11/16 12:00 97.8 89 20 180/87 96 I/O 11/11/16 11/11/16 11/11/16 11/12/16 11/12/16 11/12/16 06:59 14:59 22:59 06:59 14:59 22:59 Intake Total 325 ml 480 ml 640 ml 1200 ml Output Total 150 ml Balance 175 ml 480 ml 640 ml 1200 ml Intake Oral 480 ml 640 ml IV Total 325 ml 1200 ml Output Emesis 150 ml # Voids 2 2 2 # Bowel Movements 0 Result Diagram: 11/11/16 0600 11/12/16 0522 Imaging Last Impressions Abdomen/Pelvis CT 11/11/16 0000 Signed Impressions: Service Date/Time: Friday, November 11, 2016 16:13 - CONCLUSION: Status post right hemicolectomy. Mildly distended small and large bowel without evidence of obstruction. Diverticulosis of the sigmoid colon. Status post cholecystectomy with expected intrahepatic biliary tree dilatation. Jay Garner MD Chest X-Ray 11/10/16 0000 Signed Impressions: Service Date/Time: Thursday, November 10, 2016 20:06 - CONCLUSION: No acute cardiopulmonary disease. Saeid Holder MD Objective Remarks GENERAL: This is a well-nourished, well-developed patient, in no apparent distress. CARDIOVASCULAR: Regular rate and rhythm without murmurs, gallops, or rubs. RESPIRATORY: Clear to auscultation. Breath sounds equal bilaterally. No wheezes , rales, or rhonchi. GASTROINTESTINAL: Abdomen soft, non-tender, nondistended. Hypoactive bowel sounds MUSCULOSKELETAL: Extremities without clubbing, cyanosis, or edema. NEURO: Alert & Oriented x4 to person, place, time, situation. Moves all ext x4 A/P Problem List: (1) A-fib ICD Code: I48.91 Status: Chronic Plan: on diltiazem controlled Replace hypokalemia, magnesium within normal limits (2) Hypertension ICD Code: I10 Status: Chronic Plan: Elevated likely due to pain Better with better pain control continue home meds (3) Abdominal pain ICD Code: R10.9 Status: Acute Plan: worrisome for enteritis add cipro/flagyl/probiotic IVF CT ab pelvis shows nonspecific findings cont iv morphine (4) LFT elevation ICD Code: R79.89 Status: Acute Plan: follow up ct abd pelvis shows no hepatic injury no hx of hepatitis per patient, profile pending If no improvement will consider GI consult Problem Qualifiers (1) Abdominal pain: Qualified Code: R10.13 - Epigastric pain Katarina Singh MD Nov 12, 2016 11:21
[2016-11-12 12:00] VITALS: BP 142/84; PULSE 93; RESP 18; TEMP 99; O2SAT 95
[2016-11-12] MEDS: metroNIDAZOLE 500 MG TAB PO SCH ×2 (12:58→20:35)
--- NOTE | 2016-11-12 14:25 | EKG ---
Date Performed: 11/10/2016 Time Performed: 20:20:13 PTAGE: 86 years EKG: ATRIAL FIBRILLATION WITH RAPID VENTRICULAR RESPONSE NONSPECIFIC ST & T-WAVE ABNORMALITY ABN ORMAL RHYTHM ECG Compared to PREVIOUS TRACING the patient is now in atrial fibrillation with rapid v. response PREVIO US TRACIN08/28/2016 10.14 DOCTOR: Honey Morrison Interpretating Date/Time 11/12/2016 14:24:36
[2016-11-12 16:00] VITALS: BP 151/80; PULSE 93; RESP 19; TEMP 98.6; O2SAT 93
[2016-11-12 20:00] VITALS: BP 147/85; PULSE 77; RESP 16; TEMP 97.6; O2SAT 96
[2016-11-12] MEDS: CIPROFLOXACIN 500 MG TAB PO SCH (20:35)
[2016-11-12] MEDS: PANTOPRAZOLE SOD 40 MG DELAYED RELEASE TAB PO SCH (20:35)
[2016-11-13] VITALS: BP 144/81; PULSE 87; RESP 16; TEMP 97.6; O2SAT 96
[2016-11-13 04:00] VITALS: BP 143/94; PULSE 90; RESP 16; TEMP 98.2; O2SAT 96
[2016-11-13] MEDS: metroNIDAZOLE 500 MG TAB PO SCH ×2 (06:00→12:36)
[2016-11-13 06:44] LABS: CHLORIDE 109 MEQ/L (98-107); POTASSIUM 3.2 MEQ/L (3.5-5.1); SODIUM (NA) 143 MEQ/L (136-145)
[2016-11-13 06:54] LABS: ANION GAP 8 MEQ/L (5-15); BLOOD UREA NITROGEN 10 MG/DL (7-18)
[2016-11-13 06:57] LABS: ALT (GPT) 214 U/L (10-53); AST (GOT) 112 U/L (15-37); GLOMERULAR FILTRATION RATE 86 ML/MIN (>89)
[2016-11-13 06:58] LABS: TOTAL BILIRUBIN ADULT 0.5 MG/DL (0.2-1.0)
[2016-11-13 07:00] LABS: ALKALINE PHOSPHATASE 163 U/L (45-117)
[2016-11-13 09:00] VITALS: BP 154/88; PULSE 90; RESP 14; TEMP 97.7; O2SAT 96
[2016-11-13] MEDS: DOCUSATE SODIUM 50 MG/SENNA 8.6 MG TAB PO SCH (09:00)
[2016-11-13] MEDS: LEVOTHYROXINE SODIUM 50 MCG TAB PO SCH (09:52)
[2016-11-13] MEDS: PANTOPRAZOLE SOD 40 MG DELAYED RELEASE TAB PO SCH (09:52)
[2016-11-13] MEDS: LISINOPRIL 20 MG TAB PO SCH (09:52)
[2016-11-13] MEDS: DILTIAZEM-CD 180 MG CAP ER PO SCH (09:52)
[2016-11-13] MEDS: LACTOBACILLUS ACIDOPHILUS TAB PO SCH ×2 (09:52→12:36)
[2016-11-13] MEDS: CIPROFLOXACIN 500 MG TAB PO SCH (09:52)
[2016-11-13] MEDS: SODIUM CHLORIDE 0.9% FLUSH 10 ML FLUSH IV FLUSH SCH (09:53)
[2016-11-13] MEDS: ASPIRIN 81 MG CHEW TAB CHEW SCH (09:53)
[2016-11-13] MEDS: ONDANSETRON HCL 4 MG/2 ML VIAL IVP PRN (11:04)
[2016-11-13] MEDS ORDERED: CIPR-9 PO (11:49)
[2016-11-13] MEDS ORDERED: METR-1 PO (11:49)
[2016-11-13] MEDS ORDERED: LACT PO (11:49)
[2016-11-13] MEDS ORDERED: PANT40TA3 PO (11:49)
--- NOTE | 2016-11-13 11:50 | HHI.DCPOC ---
Discharge Care Plan Diagnosis: (1) Gastroenteritis (2) Hypertension Goals to Promote Your Health * To prevent worsening of your condition and complications * To maintain your health at the optimal level Directions to Meet Your Goals Take your medications as prescribed Follow your dietary instruction Follow activity as directed Keep your appointments as scheduled Take your immunizations and boosters as scheduled If your symptoms worsen call your PCP, if no PCP go to Urgent Care Center or Emergency Room Smoking is Dangerous to Your Health. Avoid second hand smoke Call the 24-hour hour crisis hotline for domestic abuse at Katarina Singh MD Nov 13, 2016 11:50
--- NOTE | 2016-11-13 11:54 | HHI.DS ---
Discharge Summary Admission Date Nov 11, 2016 at 12:13 Discharge Date: Nov 13, 2016 Admitting Diagnosis gastroenteritis, dehydration, A. fib RVR (1) A-fib ICD Code: I48.91 (2) Hypertension ICD Code: I10 (3) Abdominal pain ICD Code: R10.9 (4) LFT elevation ICD Code: R79.89 Procedures none Brief History - From Admission This patient is a very pleasant 86-year-old female with remote history of diverticulitis. Apparently her grandchildren had some sort of gastrointestinal infection and they were visiting over the weekend. Patient says that since yesterday she has had increased abdominal discomfort and pain. She was taking milk with some improvement. She reports nausea and vomiting associated with this 10 out of 10 abdominal pain. No was helping. She also had taken Zantac in the past for reflux and for intestinal discomfort. She has not taken this in a while. Patient has had increased blood pressures and pain. Patient's pain was relieved with morphine and also in the emergency room. Patient notes no fevers or chills. She has had watery nonbloody diarrhea and nonbloody emesis. Otherwise she has been pretty healthy. Patient is admitted to the hospital for further evaluation CBC/BMP: 11/11/16 0600 11/13/16 0611 Significant Findings Laboratory Tests Test 11/10/16 11/11/16 11/12/16 11/13/16 19:58 06:00 05:22 06:11 Neutrophils (%) (Auto) 87.8 % 93.2 % (16.0-70.0) (16.0-70.0) Lymphocytes (%) (Auto) 5.1 % 2.5 % (9.0-44.0) (9.0-44.0) Basophils (%) (Auto) 2.1 % (0.0-2.0) Lymphocytes # (Auto) 0.4 TH/MM3 0.2 TH/MM3 (1.0-4.8) (1.0-4.8) Blood Urea Nitrogen 24 MG/DL (7-18) 20 MG/DL (7-18) Estimat Glomerular Filtration 52 ML/MIN (>89) 71 ML/MIN (>89) 78 ML/MIN (>89) 86 ML/MIN (>89) Rate Random Glucose 123 MG/DL 174 MG/DL (74-106) (74-106) Total Protein 8.4 GM/DL 5.8 GM/DL 6.1 GM/DL (6.4-8.2) (6.4-8.2) (6.4-8.2) Potassium Level 3.3 MEQ/L 3.4 MEQ/L 3.2 MEQ/L (3.5-5.1) (3.5-5.1) (3.5-5.1) Chloride Level 110 MEQ/L 108 MEQ/L 109 MEQ/L (98-107) (98-107) (98-107) Calcium Level 8.2 MG/DL 7.3 MG/DL 8.0 MG/DL (8.5-10.1) (8.5-10.1) (8.5-10.1) Aspartate Amino Transf 417 U/L (15-37) 376 U/L (15-37) 112 U/L (15-37) (AST/SGOT) Alanine Aminotransferase 183 U/L (10-53) 361 U/L (10-53) 214 U/L (10-53) (ALT/SGPT) Alkaline Phosphatase 119 U/L 181 U/L 163 U/L (45-117) (45-117) (45-117) Albumin 3.2 GM/DL 2.6 GM/DL 2.8 GM/DL (3.4-5.0) (3.4-5.0) (3.4-5.0) Protein Corrected Calcium 8.0 MG/DL (8.5-10.1) Imaging Last Impressions Abdomen/Pelvis CT 11/11/16 0000 Signed Impressions: Service Date/Time: Friday, November 11, 2016 16:13 - CONCLUSION: Status post right hemicolectomy. Mildly distended small and large bowel without evidence of obstruction. Diverticulosis of the sigmoid colon. Status post cholecystectomy with expected intrahepatic biliary tree dilatation. Jay Garner MD Chest X-Ray 11/10/16 0000 Signed Impressions: Service Date/Time: Thursday, November 10, 2016 20:06 - CONCLUSION: No acute cardiopulmonary disease. Saeid Holder MD PE at Discharge GENERAL: This is a well-nourished, well-developed patient, in no apparent distress. CARDIOVASCULAR: Regular rate and rhythm without murmurs, gallops, or rubs. RESPIRATORY: Clear to auscultation. Breath sounds equal bilaterally. No wheezes , rales, or rhonchi. GASTROINTESTINAL: Abdomen soft, non-tender, nondistended. Hypoactive bowel sounds MUSCULOSKELETAL: Extremities without clubbing, cyanosis, or edema. NEURO: Alert & Oriented x4 to person, place, time, situation. Moves all ext x4 Pt update on day of discharge Recent seen today in follow-up for enteritis. Abdominal discomfort resolved. Patient tolerating diet. Good bowel movements. Feels stronger. Hospital Course This patient is an 86-year-old female who had some exposure to enteritis with her grandkids. She apparently has similar symptoms but appear to be worse off with worsening abdominal pain dehydration and electrolyte imbalances. Patient required IV hydration, potassium replacement. Pain medication and improve and the patient has been recovering quite nicely. She did have some elevated LFTs which resolved over likely due to hypotension. Workup was unremarkable. Pt Condition on Discharge: Good Discharge Disposition: Discharge Home Discharge Time: > 30 minutes Discharge Instructions DIET: Follow Instructions for: As Tolerated, No Restrictions Activities you can perform: Regular-No Restrictions Follow up Referrals: PCP Follow-up - 1 Month with denisa New Medications: Ciprofloxacin (Cipro) 500 Mg Tab 500 MG PO Q12HR Infection #20 TAB Lactobacillus Acidophilus (Acidophilus/l-Sporogenes) 1 Tab Tab 1 TAB PO TID stomach #90 TAB Metronidazole (Flagyl) 500 Mg Tab 500 MG PO Q8HR Infection #30 TAB Pantoprazole (Pantoprazole) 40 Mg Tab 40 MG PO DAILY stomach #14 TAB Continued Medications: Aspirin (Aspirin) 81 Mg Chew 81 MG CHEW DAILY Ref 0 TAB Cxwsrdjynj-Phivoqwggxpwt-Jrvzumfa (Kogfoehzwd-Vshwthflxbdjp-Zwzbjgom) 50-325-40 Mg Tab 1 TAB PO Q6H PRN Headache #12 TAB Diltiazem ER 24 HR (Taztia Xt) 180 Mg Caper 180 MG PO DAILY #30 Ref 0 CAP Levothyroxine (Levothyroxine) 50 Mcg Tab 50 MCG PO DAILY Thyroid #30 Ref 0 TAB Lisinopril (Lisinopril) 20 Mg Tab 20 MG PO DAILY Blood Pressure Management #30 TAB Omeprazole (Omeprazole) 40 Mg Cap 40 MG PO DAILY #30 Ref 0 CAP Potassium Chloride ER (K-Tab) 20 Meq Tab 20 MEQ PO DAILY Electrolyte Replacement #30 Ref 0 TAB Katarina Singh MD Nov 13, 2016 11:54
[2016-11-13] MEDS ORDERED: POTASSIUM CHLORIDE 10 MEQ CONTROLLED RELEASE TAB PO ONE (12:00)
== END 2016-11-13 13:53 | disposition home or self-care (01) | DRG 392 ==
LOC: PHED 19:15 → PHEDA 21:46 → PH3B 22:34 → OBSVTOIN 11-11 12:13
PROVIDERS: ADMIT Hospitalist; ATTEND Hospitalist
DX: K52.9 Noninfective gastroenteritis and colitis, unspecified (principal); I48.2 Chronic atrial fibrillation; E86.0 Dehydration; I10 Essential (primary) hypertension; E03.9 Hypothyroidism, unspecified; K21.9 Gastro-esophageal reflux disease without esophagitis; E87.6 Hypokalemia
CPT/HCPCS: 71010; 74176; 76937; 80053; 80074; 83735; 85025; 93005; C9113; J0744; J2270; J2405; J7030; Q9963

== ENCOUNTER 2017-04-23 20:26 | Emergency (ER) | payer MEDICARE, OTHER ==
[~2017-04-23] VITALS: Ht 167.6 cm; Wt 65.0 kg
[~2017-04-23 20:26] MED LIST changes: +ASPI-516 CHEW; -ASPI81CH CHEW; +CIPR-9 PO; -CIPR250T2 PO; +LACT PO; +METR-1 PO; +PANT40TA3 PO
[2017-04-23 21:04] VITALS: BP 207/100; PULSE 65; RESP 16; TEMP 98.7; O2SAT 98
[2017-04-23 21:38] VITALS: BP 204/101; PULSE 63; RESP 16; O2SAT 98
[2017-04-23] MEDS ORDERED: NITR1CAP36 PO (21:56)
[2017-04-23] MEDS ORDERED: LISI30TA4 PO (21:56)
[2017-04-23] MEDS ORDERED: cloNIDine HCL 0.1 MG TAB PO ONE (22:30)
[2017-04-23 23:06] VITALS: BP 197/97; PULSE 67; RESP 16; O2SAT 97
[2017-04-23] MEDS ORDERED: HYDR25TA5 PO (23:35)
--- NOTE | 2017-04-23 23:35 | PD ---
HPI Chief Complaint: Hypertension Time Seen by Provider: 21:39 Travel History International Travel<30 days: No Contact w/Intl Traveler<30days: No Traveled to known affect area: No History of Present Illness HPI This is an 87-year-old female who presents to the emergency department with high blood pressure that's been going on for several days, highest today in the 200s. She checks her blood pressure 4 times a day. Her doctor recently increased her lisinopril from 20 mg to 30 mg daily. Her symptoms of been constant, moderate severity with no associated headache, chest pain, lightheadedness or dizziness. She has no symptoms but came in because her blood pressure readings have been high and her doctor is out of town. PFSH Past Medical History Hx Anticoagulant Therapy: Yes (ASPIRIN) Anemia: Yes Arthritis: Yes Asthma: No Atrial Fibrillation: Yes (H/O? Pt unsure of dx.) Autoimmune Disease: No Anxiety: No Depression: No Heart Rhythm Problems: No Cancer: No Cardiovascular Problems: Yes High Cholesterol: No Chemotherapy: No Chest Pain: No Congestive Heart Failure: No COPD: No Cerebrovascular Accident: Yes (TIA) Diabetes: No Diminished Hearing: No Diverticulitis: Yes Endocrine: Yes (Hypothyroid ) Gastrointestinal Disorders: Yes (TUMOR REMOVED FROM COLON) GERD: Yes Genitourinary: No Headaches: Yes Hiatal Hernia: Yes Hypertension: Yes Immune Disorder: No Inguinal Hernia: Yes (Pt unsure of dx) Kidney Stones: No Musculoskeletal: Yes (Chronic back pain) Neurologic: No Psychiatric: No Reproductive: No Respiratory: No Immunizations Current: Yes Migraines: No Radiation Therapy: No Renal Failure: No Seizures: No Sickle Cell Disease: No Sleep Apnea: Yes Thyroid Disease: Yes (Hypothyroid) Ulcer: No Influenza Vaccination: Yes ?: Not Menopausal: Yes : 3 Para: 3 Past Surgical History Abdominal Surgery: Yes (Colon resection ) AICD: No Arteriovenous Shunt: No Cardiac Surgery: No Cholecystectomy: Yes Ear Surgery: No Endocrine Surgery: No Eye Surgery: Yes (Cataract removal right eye) Genitourinary Surgery: No Gynecologic Surgery: Yes (hysterectomy) Hysterectomy: Yes (Partial) Insulin Pump: No Joint Replacement: No Neurologic Surgery: No Oral Surgery: No Pacemaker: No Thoracic Surgery: No Tonsillectomy: Yes Other Surgery: Yes (TONSILECTOMY) Social History Alcohol Use: Yes (Rarely) Tobacco Use: No Substance Use: No Allergies-Medications (Allergen,Severity, Reaction): Coded Allergies: Sulfa (Sulfonamide Antibiotics) (Unverified Allergy, Severe, Anaphylaxis, 04/23/17) penicillin G (Unverified Allergy, Severe, Anaphylaxis, 04/23/17) Reported Meds & Prescriptions Reported Meds & Active Scripts Active Reported Nitrofurantoin Macrocrystal 100 Mg Cap 100 Mg PO EVERY OTHER DAY Lisinopril 30 Mg Tab 30 Mg PO DAILY Aspirin 81 Mg Chew 81 Mg CHEW DAILY Taztia Xt (Diltiazem ER 24 HR) 180 Mg Caper 180 Mg PO DAILY K-Tab (Potassium Chloride) 20 Meq Tab 20 Meq PO DAILY Omeprazole 40 Mg Cap 40 Mg PO DAILY Levothyroxine (Levothyroxine Sodium) 50 Mcg Tab 50 Mcg PO DAILY Review of Systems Except as stated in HPI: all other systems reviewed are Neg Physical Exam Narrative GENERAL:Well appearing, no acute distress SKIN: Focused skin assessment warm and dry. HEAD: Atraumatic. Normocephalic. EYES: Pupils equal and round. No injection or drainage. ENT: Moist mucous membranes NECK: Trachea midline. CARDIOVASCULAR: Regular rate and rhythm. No murmur appreciated. RESPIRATORY: Clear to auscultation. Breath sounds equal bilaterally. GASTROINTESTINAL: Abdomen soft, non-tender, nondistended. MUSCULOSKELETAL: No obvious deformities. NEUROLOGICAL: Awake and alert. No obvious cranial nerve deficits. Moving all extremities. PSYCHIATRIC: Appropriate mood and affect; insight and judgment normal. Data Data Last Documented VS Vital Signs Date Time Temp Pulse Resp B/P (MAP) Pulse Ox O2 Delivery O2 Flow Rate FiO2 04/23/17 23:06 67 16 197/97 (130) 97 Room Air 04/23/17 21:04 98.7 Orders Orders Clonidine (Catapres) (04/23/17 22:30) [facility] Medical Decision Making Medical Screen Exam Complete: Yes Emergency Medical Condition: Yes Interpretation(s) Afebrile, no tachycardia, hypertensive Differential Diagnosis Hypertension, hypertensive urgency, hypertensive emergency Narrative Course This is an 87-year-old female who presents to the emergency department with high blood pressure. She is completely asymptomatic. We had a long conversation regarding long-term blood pressure control and I told her I didn't want to drop her blood pressure too fast here in the emergency department given she has no symptoms. She was agreeable to this plan. She was given a small dose of clonidine and will be discharged on HCTZ. Patient will follow-up with her primary care physician. Diagnosis Primary Impression: Hypertension Qualified Codes: I10 - Essential (primary) hypertension Patient Instructions: General Instructions Additional Instructions: If you develop severe chest pain, shortness of breath, sweating, lightheadedness , dizziness or difficulty breathing return to the emergency department immediately. Followup with your primary care physician in 2-3 days if your symptoms are not resolved. Med/Other Pt SpecificInfo: Prescription(s) given Scripts Hydrochlorothiazide (Hydrochlorothiazide) 25 Mg Tab 25 MG PO DAILY, #30 TAB 0 Refills Prov: Isabela Birch MD 04/23/17 Disposition: 01 DISCHARGE HOME Condition: Stable Isabela Birch MD Apr 23, 2017 23:35
[2017-04-23 23:56] VITALS: BP 189/97; PULSE 67; RESP 16; TEMP 97.8; O2SAT 97
== END 2017-04-24 00:30 | disposition home or self-care (01) ==
LOC: PHED 20:26
DX: I10 Essential (primary) hypertension (principal); D64.9 Anemia, unspecified; M19.90 Unspecified osteoarthritis, unspecified site; I48.91 Unspecified atrial fibrillation; E03.9 Hypothyroidism, unspecified; K21.9 Gastro-esophageal reflux disease without esophagitis; Z86.73 Personal history of transient ischemic attack (TIA), and cerebral infarction without residual deficits; Z79.82 Long term (current) use of aspirin; Z79.899 Other long term (current) drug therapy
CPT/HCPCS: 99283